=== PATIENT | female | born 1935 | race Caucasian/White ===

== ENCOUNTER 2017-10-01 10:35 | Emergency (ER) | payer MEDICARE, OTHER ==
[2017-10-01] MEDS ORDERED: Ketorolac 30 MG/ML SDV IM ONE (11:32)
--- NOTE | 2017-10-01 11:38 | EDM.PDOC ---
ED HPI GENERAL MEDICAL PROBLEM - General Chief Complaint: Abdominal Pain Stated Complaint: LT SIDE PAIN AND ARM Time Seen by Provider: 10/01/17 11:05 Source of Information: Reports: Patient History Limitations: Reports: No Limitations - History of Present Illness INITIAL COMMENTS - FREE TEXT/NARRATIVE: c/o LUQ pain x 3d no change with food, BM, walking, bending, DB worried it may be her GB had nl BM this AM without change did not eat bfast, no n/v no prior CV hx never smoked, no alc, no street drugs here with and dtr pressure has caused inc'd pain in past, has some LUQ pain now no cough, no sob also L shoulder pain in joint x 1d, inc'd with movement, no radiation, no related to LUQ pain LEFT HSOULDER Pain Score (Numeric/FACES): 6 - Related Data Allergies Allergy/AdvReac Type Severity Reaction Status Date / Time Penicillins Allergy Unknown Itching Verified 10/01/17 10:54 Home Meds: Home Meds Alpha Lipoic Acid 100 mg PO DAILY 12/29/16 [History] Cholecalciferol (Vitamin D3) [Vitamin D3] 5,000 unit PO BID 12/29/16 [History] Cinnamon Bark [Cinnamon] 500 mg PO BID 12/29/16 [History] Glimepiride [Amaryl] 2 mg PO BIDMEALS 12/29/16 [History] Lisinopril 5 mg PO DAILY 12/29/16 [History] Ubidecarenone [Coq10] 100 mg PO DAILY 12/29/16 [History] Vitamin B Comp W-C/FA/Zinc [Cinda B Strong with C & Zinc Tb] 1 each PO DAILY 09/04 [History] metFORMIN [Glucophage] 1,000 mg PO ASDIRECTED 12/29/16 [History] Beta-Carotene(A) W-C & E/Min [Vision Vitamins] 1 each PO DAILY 10/01/17 [History ] Biotin 1 mg PO DAILY 10/01/17 [History] Cetirizine [ZyrTEC] 5 mg PO BEDTIME 10/01/17 [History] Garlic 1 each PO BID 10/01/17 [History] Past Medical History HEENT History: Reports: Hard of Hearing, Other (See Below) Other HEENT History: Wears glasses and hearing aides. 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 Neurological History: Reports: TIA Endocrine/Metabolic History: Reports: Diabetes, Type II Oncologic (Cancer) History: Reports: Breast Dermatologic History: Reports: Psoriasis - Infectious Disease History Infectious Disease History: Reports: Chicken Pox, Shingles - Past Surgical History HEENT Surgical History: Reports: Cataract Surgery Cardiovascular Surgical History: Reports: None Respiratory Surgical History: Reports: None GI Surgical History: Reports: Appendectomy Female Surgical History: Reports: Hysterectomy, Mastectomy Neurological Surgical History: Reports: Spinal Fusion Musculoskeletal Surgical History: Reports: Other (See Below) Other Musculoskeletal Surgeries/Procedures:: left ankle orif Social & Family History - Tobacco Use Smoking Status *Q: Never Smoker - Caffeine Use Caffeine Use: Reports: Coffee - Alcohol Use Days Per Week of Alcohol Use: 1 Number of Drinks Per Day: 1 Total Drinks Per Week: 1 - Recreational Drug Use Recreational Drug Use: No ED ROS GENERAL - Review of Systems Review Of Systems: See Below Constitutional: Reports: No Symptoms HEENT: Reports: No Symptoms Respiratory: Reports: No Symptoms Cardiovascular: Reports: No Symptoms Endocrine: Reports: No Symptoms GI/Abdominal: Reports: Abdominal Pain. Denies: Anorexia, Constipation, Diarrhea , Nausea, Vomiting : Reports: No Symptoms Musculoskeletal: Reports: Joint Pain Skin: Reports: No Symptoms Neurological: Reports: No Symptoms Psychiatric: Reports: No Symptoms Hematologic/Lymphatic: Reports: No Symptoms Immunologic: Reports: No Symptoms ED EXAM, GI/ABD - Physical Exam Exam: See Below Exam Limited By: No Limitations General Appearance: Alert, WD/WN, No Apparent Distress, Other (alert, pleasant, moves easily) Nose: Normal Inspection, Normal Mucosa, No Blood Throat/Mouth: Normal Inspection, Normal Voice, No Airway Compromise Head: Atraumatic, Normocephalic Neck: Normal Inspection, Supple, Non-Tender Respiratory/Chest: No Respiratory Distress, Lungs Clear, Normal Breath Sounds, No Accessory Muscle Use, Chest Non-Tender Cardiovascular: Regular Rate, Rhythm, No Edema, No Gallop, No JVD, No Rub, Other (2/6 KERON at LSB, quiet precordium) GI/Abdominal Exam: Normal Bowel Sounds, Soft, No Organomegaly, No Distention, No Mass, Other (slight tender perhaps under L ribs at AAL, ribs NT, soft, ND, no flank tender, no CVAT b/l) Back Exam: Normal Inspection, Full Range of Motion, NT Extremities: Normal Inspection, Normal Range of Motion, Non-Tender, No Pedal Edema, Other (prominent upper thoracic kyphosis) Neurological: Alert, Oriented, CN II-XII Intact, Normal Cognition, Normal Gait, No Motor/Sensory Deficits Psychiatric: Normal Affect, Normal Mood Skin Exam: Warm, Dry, Intact, Normal Color, No Rash Lymphatic: No Adenopathy Course - Vital Signs Last Recorded V/S: Last Vital Signs Temp 36.8 C 10/01/17 13:55 Pulse 94 10/01/17 13:55 Resp 20 10/01/17 13:55 BP 110/64 10/01/17 13:55 Pulse Ox 97 10/01/17 13:55 - Orders/Labs/Meds Orders: Active Orders 24 hr Category Date Time Status CULTURE URINE [RM] Stat Lab 10/01/17 13:36 Uncollected EKG 12 Lead [EK] Routine Ther 10/01/17 11:31 Ordered Labs: Laboratory Tests 10/01/17 10/01/17 10/01/17 Range/Units 12:05 12:10 12:10 WBC 7.7 (4.5-12.0) X10-3/uL RBC 5.00 (3.23-5.20) x10(6)uL Hgb 15.1 (11.5-15.5) g/dL Hct 46.0 (30.0-51.3) % MCV 92.0 (80-96) fL MCH 30.3 (27.7-33.6) pg MCHC 33.0 (32.2-35.4) g/dL RDW 12.2 (11.5-15.5) % Plt Count 262 (125-369) X10(3)uL MPV 8.5 (7.4-10.4) fL Neut % (Auto) 65.5 (46-82) % Lymph % (Auto) 27.0 (13-37) % [place] % (Auto) 5.6 (4-12) % Eos % (Auto) 1 (1.0-5.0) % Baso % (Auto) 1 (0-2) % Neut # (Auto) 5.0 (1.6-8.3) # Lymph # (Auto) 2.1 (0.6-5.0) # [place] # (Auto) 0.4 (0.0-1.3) # Eos # (Auto) 0.1 (0.0-0.8) # Baso # (Auto) 0.1 (0.0-0.2) # D-Dimer, Quantitative (100-400) ng/mL Sodium 138 (135-145) mmol/L Potassium 4.6 (3.5-5.3) mmol/L Chloride 105 (100-110) mmol/L Carbon Dioxide 24 (23-29) mmol/L BUN 15 (8-23) mg/dL Creatinine 0.7 (0.6-1.3) mg/dL Est Cr Clr Drug Dosing 51.26 mL/min Estimated GFR (MDRD) > 60 (>60) BUN/Creatinine Ratio 21.4 H (9-20) Glucose 205 H (80-116) mg/dL Calcium 9.1 (8.6-10.2) mg/dL Total Bilirubin 0.6 (0.1-1.3) mg/dL AST 21 D (5-27) IU/L ALT 16 D (14-26) IU/L Alkaline Phosphatase 62 (56-112) IU/L Troponin I (0.02-0.06) NG/ML C-Reactive Protein < 0.5 (0.0-1.0) mg/dL Total Protein 7.6 (6.0-8.0) g/dL Albumin 4.1 (3.2-4.6) g/dL Globulin 3.5 g/dL Albumin/Globulin Ratio 1.2 Amylase 58 (28-100) U/L Urine Color Yellow (YELLOW) Urine Appearance Slightly cloudy (CLEAR) Urine pH 5.0 (5.0-6.5) Ur Specific [place] 1.025 (1.010-1.025) Urine Protein Negative (NEGATIVE) mg/dL Urine Glucose (UA) Normal (NEGATIVE) mg/dL Urine Ketones Negative (NEGATIVE) mg/dL Urine Occult Blood Negative (NEGATIVE) Urine Nitrite Positive H (NEGATIVE) Urine Bilirubin Negative (NEGATIVE) Urine Urobilinogen Normal (NEGATIVE) mg/dL Ur Leukocyte Esterase Negative (NEGATIVE) Urine WBC 0-5 (0) Ur Squamous Epith Cells Few H (NS,R,O) Urine Bacteria Many H (NS) 10/01/17 10/01/17 Range/Units 12:10 12:10 WBC (4.5-12.0) X10-3/uL RBC (3.23-5.20) x10(6)uL Hgb (11.5-15.5) g/dL Hct (30.0-51.3) % MCV (80-96) fL MCH (27.7-33.6) pg MCHC (32.2-35.4) g/dL RDW (11.5-15.5) % Plt Count (125-369) X10(3)uL MPV (7.4-10.4) fL Neut % (Auto) (46-82) % Lymph % (Auto) (13-37) % [place] % (Auto) (4-12) % Eos % (Auto) (1.0-5.0) % Baso % (Auto) (0-2) % Neut # (Auto) (1.6-8.3) # Lymph # (Auto) (0.6-5.0) # [place] # (Auto) (0.0-1.3) # Eos # (Auto) (0.0-0.8) # Baso # (Auto) (0.0-0.2) # D-Dimer, Quantitative 108 (100-400) ng/mL Sodium (135-145) mmol/L Potassium (3.5-5.3) mmol/L Chloride (100-110) mmol/L Carbon Dioxide (23-29) mmol/L BUN (8-23) mg/dL Creatinine (0.6-1.3) mg/dL Est Cr Clr Drug Dosing mL/min Estimated GFR (MDRD) (>60) BUN/Creatinine Ratio (9-20) Glucose (80-116) mg/dL Calcium (8.6-10.2) mg/dL Total Bilirubin (0.1-1.3) mg/dL AST (5-27) IU/L ALT (14-26) IU/L Alkaline Phosphatase (56-112) IU/L Troponin I < 0.01 L (0.02-0.06) NG/ML C-Reactive Protein (0.0-1.0) mg/dL Total Protein (6.0-8.0) g/dL Albumin (3.2-4.6) g/dL Globulin g/dL Albumin/Globulin Ratio Amylase (28-100) U/L Urine Color (YELLOW) Urine Appearance (CLEAR) Urine pH (5.0-6.5) Ur Specific [place] (1.010-1.025) Urine Protein (NEGATIVE) mg/dL Urine Glucose (UA) (NEGATIVE) mg/dL Urine Ketones (NEGATIVE) mg/dL Urine Occult Blood (NEGATIVE) Urine Nitrite (NEGATIVE) Urine Bilirubin (NEGATIVE) Urine Urobilinogen (NEGATIVE) mg/dL Ur Leukocyte Esterase (NEGATIVE) Urine WBC (0) Ur Squamous Epith Cells (NS,R,O) Urine Bacteria (NS) Meds: Medications Discontinued Medications Generic Name Dose Route Start Last Admin Trade Name Freq PRN Reason Stop Dose Admin Ketorolac Tromethamine 30 mg 10/01/17 11:32 10/01/17 12:21 Toradol IM 10/01/17 11:33 Not Given ONETIME ONE - Re-Assessments/Exams Free Text/Narrative Re-Assessment/Exam: 10/01/17 13:58 u/a with moderate bacteria, no WBC, pt declined antbx, says she "has a way of treating it" XR L shoulder with DJD at AC joint, GH joint neg KUB with stool throughout colon w/u otherwise neg, pt comfortable, declined Toradol PCP Dr Sheridan Departure - Departure Time of Disposition: 13:59 Disposition: Home, Self-Care 01 Condition: Good Clinical Impression: Abdominal pain, UTI (urinary tract infection), Constipation - Discharge Information Referrals: Sanchez Dejesus MD [Primary Care Provider] - Forms: ED Department Discharge Additional Instructions: Drink a 10 ounce bottle magnesium citrate when you get home to clean out the colon. For urinary tract infection, use your home remedy. For pain, take acetaminophen 325 mg 2 tabs 4 times a day for 2 days, longer if needed. See Dr Sheridan in 2-3 days. Return to ED if you feel worse. Call your Physician or Return to Emergency Department if: * Your condition worsens in any way. * You develop fever greater than 100.4. * You have vomitting that does not stop with medications. * You have pain that is not controlled with medications. - My Orders Last 24 Hours: My Active Orders 10/01/17 11:31 EKG 12 Lead [EK] Routine 10/01/17 13:36 CULTURE URINE [RM] Stat - Assessment/Plan Last 24 Hours: My Active Orders 10/01/17 11:31 EKG 12 Lead [EK] Routine 10/01/17 13:36 CULTURE URINE [RM] Stat
--- NOTE | 2017-10-01 13:27 | CR ---
INDICATION: Left shoulder pain. LEFT SHOULDER: Three views of the left shoulder revealed overall demineralization, suggesting the possibility of osteoporosis - correlate clinically. Minimal degenerative changes are noted at the AC joint. The glenohumeral joint appeared fairly normal for age. No evidence of an acute fracture or dislocation was identified. MTDD
--- NOTE | 2017-10-01 13:35 | CR ---
INDICATION: Left upper quadrant pain compatible with constipation. ABDOMEN: Four images of the abdomen in supine and upright projections 2016. No comparison x-rays were identified. However, there was a CT of the abdomen from 09/05/2013. Degenerative changes and disk disease are noted with scoliosis in the lumbosacral spine. Calcifications are noted in the abdominal aorta and iliac, as well as femoral arteries. A calcific density in the pelvis, lower middle to mid area, may represent a vesicular calculus. There are some mild degenerative changes at the sacroiliac joints bilaterally. The hip joints appear to be fairly intact. The pattern of gas and feces is nonspecific, without evidence of free air or obstruction. No organomegaly or mass lesions were identified. IMPRESSION: 1. Nonacute abdomen with only one air-fluid level of questionable significance in the right lower quadrant. 2. ASD. 3. DJD, disk disease, scoliosis. 4. Possible 1-cm calculus in the area of the urinary bladder - correlate clinically. This appearance could also be on the basis of a calcified uterine fibroid. MTDD
[2017-10-01 13:56] VITALS: BP 110/64
== END 2017-10-01 14:13 | disposition home or self-care (01) ==
LOC: FB.ED 10:35
DX: N39.0 Urinary tract infection, site not specified (principal); K59.00 Constipation, unspecified; I10 Essential (primary) hypertension; E11.9 Type 2 diabetes mellitus without complications; Z79.84 Long term (current) use of oral hypoglycemic drugs; Z79.899 Other long term (current) drug therapy; Z88.0 Allergy status to penicillin
CPT/HCPCS: 36415; 73030-LT; 74020; 80053; 81001; 82150; 84484; 85025; 85379; 86140; 93005; 96372; 99283; 99284

== ENCOUNTER 2019-12-22 07:15 | Day surgery (SDC) | payer MEDICARE, BC ==
[~2019-12-22 07:15] MED LIST: Lactated Ringers 1,000 ML IV SCH; Sodium Chloride 0.9% 10 ML Syringe FLUSH PRN
[2019-12-22] MEDS ORDERED: Lidocaine 2% 5 ML SDV INJECT ONE (07:16)
[2019-12-22] MEDS ORDERED: Propofol 200 MG/20 ML SDV IV ONE (07:16)
--- NOTE | 2019-12-22 09:09 | PCM.OPNOTE ---
- General Post-Op/Procedure Note Date of Surgery/Procedure: 12/22/19 Operative Procedure(s): egd with bx Findings: gastroduodenitis hiatal hernia esophagitis Pre Op Diagnosis: dysphagia Post-Op Diagnosis: gastroduodenitis. hiatal hernia. esophagitis Anesthesia Technique: MAC Primary Surgeon: Federico Briseno Anesthesia Provider: Cierra Morton Pathology: duodenum stomach esophagus Complications: None Condition: Good Free Text/Narrative:: see dictation
[2019-12-22 09:53] VITALS: BP 140/81; PULSE 97
--- NOTE | 2019-12-22 15:19 | OR ---
DATE OF OPERATION: 12/22/2019 SURGEON: Federico Briseno MD PROCEDURE PERFORMED: Esophagogastroduodenoscopy with cold forceps biopsy. PREOPERATIVE DIAGNOSIS: Dysphagia. POSTOPERATIVE DIAGNOSES: Gastroduodenitis, esophagitis, and hiatal hernia. INDICATIONS FOR PROCEDURE: This is an 84-year-old white female with a longstanding history of swallowing issues. She was offered and accepted an esophagogastroduodenoscopy. DESCRIPTION OF OPERATION: After an excellent IV sedation was administered, the bite block was inserted. Flexible endoscope was passed without difficulties down the patient's esophagus into the stomach. Stomach was insufflated. Scope was passed through the pylorus to the second portion of the duodenum and slowly withdrawn. Following findings were noted. Duodenum, mild irritation, possible metaplasia, and the proximal duodenum biopsies were taken. Stomach, hiatal hernia. GE junction measured at 35 cm. There was some mild gastritis. Biopsies were taken. GE junction is noted, measured at 35 cm, and there was some evidence of esophagitis, possible intestinal metaplasia. Biopsies were taken of this area as well. The remainder of the esophageal exam was unremarkable. Stomach was deflated. Scope was removed. The patient tolerated the procedure well, was taken to recovery in good condition. /[id number] /CLIFFL
== END 2019-12-22 10:11 | disposition home or self-care (01) ==
LOC: FB.SDS 07:15
PROVIDERS: ATTEND Surgery
DX: K29.80 Duodenitis without bleeding (principal); K29.50 Unspecified chronic gastritis without bleeding; K20.9 Esophagitis, unspecified; K44.9 Diaphragmatic hernia without obstruction or gangrene; K31.89 Other diseases of stomach and duodenum; I10 Essential (primary) hypertension; E78.49 Other hyperlipidemia; E11.42 Type 2 diabetes mellitus with diabetic polyneuropathy; Z79.84 Long term (current) use of oral hypoglycemic drugs; Z79.899 Other long term (current) drug therapy
CPT/HCPCS: 43239; 82962; J2001; J2704; J7120; 88305; 88313; 88342

== ENCOUNTER 2021-02-25 15:06 | Inpatient (IN) | payer MEDICARE, BC ==
[2021-02-25] MEDS ORDERED: 50% Dextrose in Water 50 ML Syringe IVPUSH PRN ×3 (15:33→18:28)
[2021-02-25] MEDS ORDERED: Glucagon,Human Recombinant 1 MG Vial IM PRN ×3 (15:33→18:28)
[2021-02-25] MEDS ORDERED: Insulin Regular, Human 100 Units/ML 3 ML Vial IV ONE (15:33)
[2021-02-25] MEDS ORDERED: Sodium Chloride 0.9% 1,000 ML IV SCH ×2 (15:45→18:30)
--- NOTE | 2021-02-25 18:02 | PCM.HP.2 ---
H&P History of Present Illness - General Date of Service: 02/25/21 Admit Problem/Dx: Admission Diagnosis/Problem Admission Diagnosis/Problem Hyperglycemia Source of Information: Patient, Provider History Limitations: Reports: No Limitations - History of Present Illness Initial Comments - Free Text/Narative: 85-year-old lady was seen in the office today by her primary care physician due to ongoing difficulties with urinary tract infection, hyperglycemia, and lower extremity ulcer. Patient has been treated by starting insulin at home, surgical treatment for the ulcer, and antibiotics for urinary tract infection. There appears to be some confusion as to which antibiotic the patient should be taking. Medical record shows that the patient was ordered doxycycline on 02/21 but the patient insists that she has been taking Bactrim at home. Review of the medical record shows that urine culture shows sensitivity to doxycycline but not to Bactrim. She was sent to the hospital for direct admission due to uncontrolled hyperglycemia, polyuria, polydipsia, UTI, weakness. - Related Data Allergies/Adverse Reactions: Allergies Allergy/AdvReac Type Severity Reaction Status Date / Time Penicillins Allergy Unknown Itching Verified 12/22/19 07:45 aspirin Allergy Other Verified 12/22/19 07:45 Home Medications: Home Meds Cinnamon Bark [Cinnamon] 500 mg PO BID 12/29/16 [History] Lisinopril 5 mg PO DAILY 12/29/16 [History] Ubidecarenone [Coq10] 50 mg PO DAILY 12/29/16 [History] Vitamin B Comp W-C/FA/Zinc [Cinda B Strong with C & Zinc Tb] 1 each PO DAILY 12/29/16 [History] metFORMIN [Glucophage] 1,000 mg PO BID 12/29/16 [History] Garlic 50 mg PO BID 10/01/17 [History] Benfothiamine 1 tab PO BID 02/25/21 [History] Berberine Gluco Defense 500 mg PO BID 02/25/21 [History] Cetirizine [ZyrTEC] 5 mg PO BEDTIME 02/25/21 [History] Cholecalciferol (Vitamin D3) [Vitamin D] 5,000 unit PO BID 02/25/21 [History] Curcumin 500 mg PO DAILY 02/25/21 [History] Dulaglutide [Trulicity] 3 mg SUBCUT WE 02/25/21 [History] Evening [place] Oil 1 cap PO DAILY 02/25/21 [History] Glimepiride 2 mg PO BIDMEALS 02/25/21 [History] Gymnema Kang 400 mg PO DAILY PRN 02/25/21 [History] Insulin Aspart [NovoLOG] 6 units SUBCUT ASDIRECTED 02/25/21 [History] Insulin NPH/Insulin Reg,Human [Novolin 70-30] 20 units SUBCUT BIDAC 02/25/21 [History] Sulfamethoxazole/Trimethoprim [Bactrim Ds Tablet] 1 tab PO BID 02/25/21 [History] Vanadyl Sulfate 10 mg PO DAILY PRN 02/25/21 [History] Past Medical History HEENT History: Reports: Hard of Hearing, Other (See Below) Other HEENT History: Wears glasses and hearing aides. PRESBYOPIA. ASTIGMATISM. MYOPIA Cardiovascular History: Reports: High Cholesterol, Hypertension Respiratory History: Reports: None Gastrointestinal History: Reports: GERD Other Gastrointestinal History: GASTRITIS. GASTRODUODENITIS. PERSONAL HX OF URINARY DISORDER. 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 Neurological History: Reports: TIA Endocrine/Metabolic History: Reports: Diabetes, Type II Oncologic (Cancer) History: Reports: Breast Other Oncologic History: FAMILY HX OF MALIGNANT NEOPLASM OF BREAST Dermatologic History: Reports: Psoriasis - Infectious Disease History Infectious Disease History: Reports: Chicken Pox, Shingles - Past Surgical History HEENT Surgical History: Reports: Cataract Surgery Cardiovascular Surgical History: Reports: None Respiratory Surgical History: Reports: None GI Surgical History: Reports: Appendectomy Female Surgical History: Reports: Hysterectomy, Mastectomy Neurological Surgical History: Reports: Spinal Fusion Other Neurological Surgeries/Procedures: Low back surgery. Musculoskeletal Surgical History: Reports: Other (See Below) Other Musculoskeletal Surgeries/Procedures:: left ankle orif Social & Family History - Caffeine Use Caffeine Use: Reports: Coffee H&P Review of Systems - Review of Systems: Review Of Systems: See Below Free Text/Narrative: Patient states that she does not have any pain at this time but she continues to feel very weak. General: Reports: Malaise, Weakness HEENT: Reports: No Symptoms Pulmonary: Reports: No Symptoms Cardiovascular: Reports: No Symptoms Gastrointestinal: Reports: Abdominal Pain Genitourinary: Reports: No Symptoms Musculoskeletal: Reports: No Symptoms Skin: Reports: No Symptoms Psychiatric: Reports: No Symptoms Neurological: Reports: No Symptoms Hematologic/Lymphatic: Reports: No Symptoms Immunologic: Reports: No Symptoms Exam - Exam Exam: See Below - Vital Signs Vital Signs: Last Vital Signs Temp 36.3 C 02/25/21 16:20 Pulse 118 H 02/25/21 16:20 Resp 16 02/25/21 16:20 BP 109/74 02/25/21 16:20 Pulse Ox 96 02/25/21 16:20 Weight: 61.054 kg - Exam Quality Assessment: Supplemental Oxygen, DVT Prophylaxis General: Alert, Oriented, Cooperative HEENT: EOMI Lungs: Clear to Auscultation Cardiovascular: Regular Rate, Regular Rhythm GI/Abdominal Exam: Normal Bowel Sounds, Tender Back Exam: No: CVA Tenderness (R), CVA Tenderness (L) Extremities: Normal Inspection, Other Peripheral Pulses: 1+: Dorsalis Pedis (L), Dorsalis Pedis (R), 2+: Radial (L), Radial (R) Skin: Warm, Dry, Intact, Wound Neuro Extensive - Mental Status: Alert, Oriented x3, Normal Mood/Affect Psychiatric: Alert, Normal Affect, Normal Mood - Patient Data Lab Results Last 24 hrs: Laboratory Results - last 24 hr 02/25/21 Range/Units 16:40 Glucose 511 H* (80-116) mg/dL Sepsis Event Note - Evaluation Sepsis Screening Result: No Definite Risk - Focused Exam Vital Signs: Vital Signs Temp Pulse Resp BP Pulse Ox 02/25/21 16:20 36.3 C 118 H 16 109/74 96 - Problem List (1) Acute kidney injury SNOMED Code(s): 84863558, 66636028 ICD Code: N17.9 - ACUTE KIDNEY FAILURE, UNSPECIFIED Status: Acute Current Visit: Yes (2) Polyuria SNOMED Code(s): 83022204 ICD Code: R35.8 - OTHER POLYURIA Status: Acute Current Visit: Yes (3) Polydipsia SNOMED Code(s): 52361476 ICD Code: R63.1 - POLYDIPSIA Status: Acute Current Visit: Yes (4) Fatigue SNOMED Code(s): 19837320 ICD Code: R53.83 - OTHER FATIGUE Status: Acute Current Visit: Yes (5) Hyperglycemia due to type 2 diabetes mellitus SNOMED Code(s): 349174780607741, 654803850808157 ICD Code: E11.65 - TYPE 2 DIABETES MELLITUS WITH HYPERGLYCEMIA Status: Acute Current Visit: Yes (6) High anion gap metabolic acidosis SNOMED Code(s): 21889716 ICD Code: E87.2 - ACIDOSIS Status: Acute Current Visit: Yes (7) Palliative care status SNOMED Code(s): 868844790 ICD Code: Z51.5 - ENCOUNTER FOR PALLIATIVE CARE Status: Acute Current Visit: Yes (8) UTI (urinary tract infection) SNOMED Code(s): 25105464 ICD Code: N39.0 - URINARY TRACT INFECTION, SITE NOT SPECIFIED Status: Acute Current Visit: No (9) Ulcer of left ankle SNOMED Code(s): 204387108, 293590312 ICD Code: L97.329 - NON-PRESSURE CHRONIC ULCER OF LEFT ANKLE WITH UNSP SEVERITY Status: Acute Current Visit: Yes Problem List Initiated/Reviewed/Updated: Yes Orders Last 24hrs: Active Orders 24 hr Category Date Time Status Patient Status [ADT] Routine ADT 02/25/21 17:49 Ordered Accu Check [Blood Glucose Check, Bedside] [RC] Care 02/25/21 15:33 Active QIDACANDBED Oxygen Therapy [RC] PRN Care 02/25/21 17:49 Ordered Up With Assistance [RC] ASDIRECTED Care 02/25/21 17:49 Ordered VTE/DVT Education [RC] Per Unit Routine Care 02/25/21 17:49 Ordered Vital Signs [RC] Q4H Care 02/25/21 17:49 Ordered Consistent Carbohydrate Diet [DIET] Diet 02/25/21 Dinner Ordered Cetirizine [ZyrTEC] Med 02/25/21 21:00 Ordered 5 mg PO BEDTIME Cholecalciferol (Vitamin D3) [Vitamin D] Med 02/25/21 21:00 Ordered 5,000 unit PO BID Doxycycline [Vibramycin] 100 mg Med 02/25/21 18:00 Ordered Sodium Chloride 0.9% [Normal Saline] 100 ml IV Q12HR Enoxaparin [Lovenox] Med 02/25/21 18:00 Ordered 30 mg SUBCUT Q24H Sodium Chloride 0.9% [Normal Saline] 1,000 ml Med 02/25/21 15:45 Active IV ASDIRECTED lisinopriL [Prinivil] Med 02/26/21 09:00 Ordered 5 mg PO DAILY Resuscitation Status Routine Resus Stat 02/25/21 17:49 Ordered Medication Orders Cetirizine HCl (Cetirizine 10 Mg Tab) 5 mg PO BEDTIME GIANNI Cholecalciferol (Cholecalciferol (Vitamin D3) 25 Mcg Tab) 125 mcg PO BID [facility] Enoxaparin Sodium (Enoxaparin 30 Mg/0.3 Ml Syringe) 30 mg SUBCUT Q24H [facility] Sodium Chloride (Normal Saline) 1,000 mls @ 150 mls/hr IV ASDIRECTED [facility] Last Admin: 02/25/21 16:33 Dose: 150 mls/hr Documented by: BOBBY Doxycycline Hyclate 100 mg/ (Sodium Chloride) 100 mls @ 100 mls/hr IV Q12HR [facility] Lisinopril (Lisinopril 5 Mg Tab) 5 mg PO DAILY [facility] Assessment/Plan Comment:: UTI/acute kidney injury -start IV doxycycline, consider switching to oral when patient begins to start to show improvement Elevated anion gap metabolic acidosis secondary to hyperglycemia secondary to type 2 diabetes secondary to acute kidney injury sliding scale insulin, glucose checks AC and at bedtime, will add basal insulin once sensitivity is established and renal function improves Fatigue and other symptoms will likely improve as kidney function and glucose control improves DVT prophylaxis -patient's GFR is at the lower limits for enoxaparin, 30 mg now consider increasing dose with improving renal function Diet -system carbohydrate
[2021-02-25] MEDS ORDERED: Insulin Lispro Protamine/Lispro 75-25 100 Units/ML 3 ML KwikPen SUBCUT SCH (18:07)
[2021-02-25] MEDS: Doxycycline 100 MG in Sodium Chloride 0.9% 100 ML IV SCH (18:50)
[2021-02-25] MEDS: Cholecalciferol (Vitamin D3) 25 MCG Tab PO SCH (20:36)
[2021-02-25] MEDS: Cetirizine 10 MG Tab PO SCH (20:37)
[2021-02-25] MEDS: Insulin Lispro 100 Unit/ML 3 ML KwikPen SUBCUT SCH (20:37)
[2021-02-25] MEDS ORDERED: Enoxaparin 30 MG/0.3 ML Syringe SUBCUT SCH (21:00)
[2021-02-26] MEDS: Acetaminophen 325 MG Tab PO PRN ×3 (01:04→20:45)
[2021-02-26] MEDS: Doxycycline 100 MG in Sodium Chloride 0.9% 100 ML IV SCH ×2 (05:21→17:14)
[2021-02-26] MEDS ORDERED: Insulin Lispro 100 Unit/ML 3 ML KwikPen SUBCUT ONE (07:33)
[2021-02-26] MEDS: Insulin Lispro 100 Unit/ML 3 ML KwikPen SUBCUT SCH ×4 (07:37→20:45)
[2021-02-26] MEDS: Cholecalciferol (Vitamin D3) 25 MCG Tab PO SCH ×2 (08:18→20:44)
[2021-02-26] MEDS: Lisinopril 5 MG Tab PO SCH (08:18)
--- NOTE | 2021-02-26 09:48 | PCM.PN ---
- General Info Date of Service: 02/26/21 Admission Dx/Problem (Free Text): Admission Diagnosis/Problem Admission Diagnosis/Problem Hyperglycemia Subjective Update: Patient states that she feels much better today. She has no new concerns or complaints. Functional Status: Reports: Pain Controlled, Tolerating Diet, Ambulating, Urinating - Review of Systems General: Reports: No Symptoms, Weakness HEENT: Reports: No Symptoms Pulmonary: Reports: No Symptoms Cardiovascular: Reports: No Symptoms Gastrointestinal: Reports: No Symptoms Genitourinary: Reports: No Symptoms Musculoskeletal: Reports: No Symptoms Skin: Reports: No Symptoms Neurological: Reports: No Symptoms Psychiatric: Reports: No Symptoms - Patient Data Vitals - Most Recent: Last Vital Signs Temp 36.3 C 02/26/21 04:00 Pulse 100 02/26/21 04:00 Resp 18 02/26/21 04:00 BP 114/59 L 02/26/21 08:18 Pulse Ox 95 02/26/21 04:00 Weight - Most Recent: 64.546 kg I&O - Last 24 Hours: Intake & Output 02/25/21 02/26/21 02/26/21 22:59 06:59 14:59 Intake Total 640 1160 Balance 640 1160 Lab Results Last 24 Hours: Laboratory Results - last 24 hr 02/25/21 02/25/21 02/25/21 Range/Units 16:18 16:40 20:03 WBC (3.0-10.3) x10-3/uL RBC (3.60-5.20) x10(6)uL Hgb (11.4-15.5) g/dL Hct (34.2-48.2) % MCV (76.7-100.5) fL MCH (23.9-33.9) pg MCHC (31.9-34.8) g/dL RDW (12.3-16.5) % Plt Count (151-488) x10(3)uL MPV (7.1-12.4) fL Neut % (Auto) (30.8-76.2) % Lymph % (Auto) (18.4-52.1) % [place] % (Auto) (4.4-15.7) % Eos % (Auto) (0.6-8.1) % Baso % (Auto) (0.2-1.5) % Neut # (Auto) (1.5-6.3) x10-3/uL Lymph # (Auto) (1.0-4.4) x10-3/uL [place] # (Auto) (0.3-1.0) x10-3/uL Eos # (Auto) (0.0-0.8) x10-3/uL Baso # (Auto) (0.0-0.1) x10-3/uL Sodium (135-145) mmol/L Potassium (3.5-5.3) mmol/L Chloride (100-110) mmol/L Carbon Dioxide (21-32) mmol/L BUN (7-18) mg/dL Creatinine (0.55-1.02) mg/dL Est Cr Clr Drug Dosing mL/min Estimated GFR (MDRD) (>60) BUN/Creatinine Ratio (9-20) Glucose 511 H* (80-116) mg/dL POC Glucose > 500 H* 391 H (74-100) mg/dL Calcium (8.6-10.2) mg/dL 02/26/21 02/26/21 Range/Units 08:47 08:47 WBC 8.1 (3.0-10.3) x10-3/uL RBC 4.23 (3.60-5.20) x10(6)uL Hgb 12.7 (11.4-15.5) g/dL Hct 39.1 (34.2-48.2) % MCV 92.5 (76.7-100.5) fL MCH 30.0 (23.9-33.9) pg MCHC 32.4 (31.9-34.8) g/dL RDW 13.7 (12.3-16.5) % Plt Count 334 (151-488) x10(3)uL MPV 8.6 (7.1-12.4) fL Neut % (Auto) 58.4 (30.8-76.2) % Lymph % (Auto) 29.3 (18.4-52.1) % [place] % (Auto) 10.3 (4.4-15.7) % Eos % (Auto) 1.2 (0.6-8.1) % Baso % (Auto) 0.8 (0.2-1.5) % Neut # (Auto) 4.7 (1.5-6.3) x10-3/uL Lymph # (Auto) 2.4 (1.0-4.4) x10-3/uL [place] # (Auto) 0.8 (0.3-1.0) x10-3/uL Eos # (Auto) 0.1 (0.0-0.8) x10-3/uL Baso # (Auto) 0.1 (0.0-0.1) x10-3/uL Sodium 134 L (135-145) mmol/L Potassium 5.0 (3.5-5.3) mmol/L Chloride 99 L (100-110) mmol/L Carbon Dioxide 19 L (21-32) mmol/L BUN 34 H (7-18) mg/dL Creatinine 1.1 H (0.55-1.02) mg/dL Est Cr Clr Drug Dosing 30.37 mL/min Estimated GFR (MDRD) 47 L (>60) BUN/Creatinine Ratio 30.9 H (9-20) Glucose 306 H D (80-116) mg/dL POC Glucose (74-100) mg/dL Calcium 9.2 (8.6-10.2) mg/dL Med Orders - Current: Current Medications Acetaminophen (Acetaminophen 325 Mg Tab) 650 mg PO Q6H PRN PRN Reason: Pain Last Admin: 02/26/21 01:04 Dose: 650 mg Documented by: Cetirizine HCl (Cetirizine 10 Mg Tab) 5 mg PO BEDTIME REPLACED BY [facility] Last Admin: 02/25/21 20:37 Dose: 5 mg Documented by: Cholecalciferol (Cholecalciferol (Vitamin D3) 25 Mcg Tab) 125 mcg PO BID REPLACED BY [facility] Last Admin: 02/26/21 08:18 Dose: 125 mcg Documented by: Dextrose/Water (50% Dextrose In Water 50 Ml Syringe) 50 ml IVPUSH ASDIRECTED PRN PRN Reason: Hypoglycemia Enoxaparin Sodium (Enoxaparin 30 Mg/0.3 Ml Syringe) 30 mg SUBCUT BEDTIME REPLACED BY [facility] Last Admin: 02/25/21 20:36 Dose: 30 mg Documented by: Glucagon (Glucagon,Human Recombinant 1 Mg Vial) 1 mg IM ASDIRECTED PRN PRN Reason: Hypoglycemia Doxycycline Hyclate 100 mg/ (Sodium Chloride) 100 mls @ 100 mls/hr IV Q12H REPLACED BY [facility] Last Admin: 02/26/21 05:21 Dose: 100 mls/hr Documented by: Sodium Chloride (Normal Saline) 1,000 mls @ 75 mls/hr IV ASDIRECTED REPLACED BY [facility] Insulin Human Lispro (Insulin Lispro 100 Unit/Ml 3 Ml Kwikpen) 0 unit SUBCUT QIDACANDBED REPLACED BY [facility]; Protocol Last Admin: 02/26/21 07:37 Dose: 2 units Documented by: Lisinopril (Lisinopril 5 Mg Tab) 5 mg PO DAILY REPLACED BY [facility] Last Admin: 02/26/21 08:18 Dose: 5 mg Documented by: Discontinued Medications Dextrose/Water (50% Dextrose In Water 50 Ml Syringe) 50 ml IVPUSH ASDIRECTED PRN PRN Reason: Hypoglycemia Dextrose/Water (50% Dextrose In Water 50 Ml Syringe) 50 ml IVPUSH ASDIRECTED PRN PRN Reason: Hypoglycemia Glucagon (Glucagon,Human Recombinant 1 Mg Vial) 1 mg IM ASDIRECTED PRN PRN Reason: Hypoglycemia Glucagon (Glucagon,Human Recombinant 1 Mg Vial) 1 mg IM ASDIRECTED PRN PRN Reason: Hypoglycemia Sodium Chloride (Normal Saline) 1,000 mls @ 150 mls/hr IV ASDIRECTED REPLACED BY [facility] Last Infusion: 02/25/21 18:39 Dose: 125 mls/hr Documented by: Sodium Chloride (Normal Saline) 1,000 mls @ 125 mls/hr IV ASDIRECTED REPLACED BY [facility] Last Admin: 02/26/21 01:07 Dose: 125 mls/hr Documented by: Insulin Human Regular (Insulin Regular, Human 100 Units/Ml 3 Ml Vial) 10 unit IV ONETIME ONE Stop: 02/25/21 15:34 Last Admin: 02/25/21 17:20 Dose: 10 unit Documented by: Insulin Lispro Protam/Lispro Human (Insulin Lispro Protamine/Lispro 75-25 100 Units/Ml 3 Ml Kwikpen) 0 unit SUBCUT QIDACANDBED REPLACED BY [facility]; Protocol Last Admin: 02/25/21 18:39 Dose: Not Given Documented by: Comments:: Patient was able to stand and walk to the shower and take a shower with assistance. When I examined the patient she was standing next to her bed. She appears to be much stronger. - Exam Quality Assessment: Supplemental Oxygen, DVT Prophylaxis General: Alert, Oriented, Cooperative, No Acute Distress HEENT: EOMI Lungs: Crackles (Bilateral lower lobe crackles, reduced airflow left lower lobe) Cardiovascular: Regular Rate, Regular Rhythm GI/Abdominal Exam: Normal Bowel Sounds, Soft, Non-Tender Back Exam: Normal Inspection. No: CVA Tenderness (R), CVA Tenderness (L) Extremities: Normal Inspection Peripheral Pulses: 1+: Dorsalis Pedis (L), Dorsalis Pedis (R), 2+: Radial (L), Radial (R) Skin: Warm, Dry, Intact Wound/Incisions: No Drainage Neurological: No: Normal Gait Psy/Mental Status: Alert, Normal Affect, Normal Mood - Patient Data Lab Results Last 24 hrs: Laboratory Results - last 24 hr 02/25/21 02/25/21 02/25/21 Range/Units 16:18 16:40 20:03 WBC (3.0-10.3) x10-3/uL RBC (3.60-5.20) x10(6)uL Hgb (11.4-15.5) g/dL Hct (34.2-48.2) % MCV (76.7-100.5) fL MCH (23.9-33.9) pg MCHC (31.9-34.8) g/dL RDW (12.3-16.5) % Plt Count (151-488) x10(3)uL MPV (7.1-12.4) fL Neut % (Auto) (30.8-76.2) % Lymph % (Auto) (18.4-52.1) % [place] % (Auto) (4.4-15.7) % Eos % (Auto) (0.6-8.1) % Baso % (Auto) (0.2-1.5) % Neut # (Auto) (1.5-6.3) x10-3/uL Lymph # (Auto) (1.0-4.4) x10-3/uL [place] # (Auto) (0.3-1.0) x10-3/uL Eos # (Auto) (0.0-0.8) x10-3/uL Baso # (Auto) (0.0-0.1) x10-3/uL Sodium (135-145) mmol/L Potassium (3.5-5.3) mmol/L Chloride (100-110) mmol/L Carbon Dioxide (21-32) mmol/L BUN (7-18) mg/dL Creatinine (0.55-1.02) mg/dL Est Cr Clr Drug Dosing mL/min Estimated GFR (MDRD) (>60) BUN/Creatinine Ratio (9-20) Glucose 511 H* (80-116) mg/dL POC Glucose > 500 H* 391 H (74-100) mg/dL Calcium (8.6-10.2) mg/dL 02/26/21 02/26/21 Range/Units 08:47 08:47 WBC 8.1 (3.0-10.3) x10-3/uL RBC 4.23 (3.60-5.20) x10(6)uL Hgb 12.7 (11.4-15.5) g/dL Hct 39.1 (34.2-48.2) % MCV 92.5 (76.7-100.5) fL MCH 30.0 (23.9-33.9) pg MCHC 32.4 (31.9-34.8) g/dL RDW 13.7 (12.3-16.5) % Plt Count 334 (151-488) x10(3)uL MPV 8.6 (7.1-12.4) fL Neut % (Auto) 58.4 (30.8-76.2) % Lymph % (Auto) 29.3 (18.4-52.1) % [place] % (Auto) 10.3 (4.4-15.7) % Eos % (Auto) 1.2 (0.6-8.1) % Baso % (Auto) 0.8 (0.2-1.5) % Neut # (Auto) 4.7 (1.5-6.3) x10-3/uL Lymph # (Auto) 2.4 (1.0-4.4) x10-3/uL [place] # (Auto) 0.8 (0.3-1.0) x10-3/uL Eos # (Auto) 0.1 (0.0-0.8) x10-3/uL Baso # (Auto) 0.1 (0.0-0.1) x10-3/uL Sodium 134 L (135-145) mmol/L Potassium 5.0 (3.5-5.3) mmol/L Chloride 99 L (100-110) mmol/L Carbon Dioxide 19 L (21-32) mmol/L BUN 34 H (7-18) mg/dL Creatinine 1.1 H (0.55-1.02) mg/dL Est Cr Clr Drug Dosing 30.37 mL/min Estimated GFR (MDRD) 47 L (>60) BUN/Creatinine Ratio 30.9 H (9-20) Glucose 306 H D (80-116) mg/dL POC Glucose (74-100) mg/dL Calcium 9.2 (8.6-10.2) mg/dL Result Diagrams: 02/26/21 08:47 02/26/21 08:47 Sepsis Event Note - Evaluation Sepsis Screening Result: No Definite Risk - Focused Exam Vital Signs: Vital Signs Temp Pulse Resp BP BP Pulse Ox 02/26/21 08:18 114/59 L 02/26/21 04:00 36.3 C 100 18 130/76 95 02/25/21 23:45 36.3 C 101 H 18 114/67 97 02/25/21 21:49 36.4 C 112 H 18 119/67 99 - Problem List & Annotations (1) Acute kidney injury SNOMED Code(s): 34780791, 48724556 Code(s): N17.9 - ACUTE KIDNEY FAILURE, UNSPECIFIED Status: Acute Current Visit: Yes (2) Polyuria SNOMED Code(s): 35132371 Code(s): R35.8 - OTHER POLYURIA Status: Acute Current Visit: Yes (3) Polydipsia SNOMED Code(s): 77016085 Code(s): R63.1 - POLYDIPSIA Status: Acute Current Visit: Yes (4) Fatigue SNOMED Code(s): 13556809 Code(s): R53.83 - OTHER FATIGUE Status: Acute Current Visit: Yes (5) Hyperglycemia due to type 2 diabetes mellitus SNOMED Code(s): 404203062086348, 315140670720940 Code(s): E11.65 - TYPE 2 DIABETES MELLITUS WITH HYPERGLYCEMIA Status: Acute Current Visit: Yes (6) High anion gap metabolic acidosis SNOMED Code(s): 66875728 Code(s): E87.2 - ACIDOSIS Status: Acute Current Visit: Yes (7) Palliative care status SNOMED Code(s): 498724059 Code(s): Z51.5 - ENCOUNTER FOR PALLIATIVE CARE Status: Acute Current Visit: Yes (8) UTI (urinary tract infection) SNOMED Code(s): 56078461 Code(s): N39.0 - URINARY TRACT INFECTION, SITE NOT SPECIFIED Status: Acute Current Visit: No (9) Ulcer of left ankle SNOMED Code(s): 514240044, 838502329 Code(s): L97.329 - NON-PRESSURE CHRONIC ULCER OF LEFT ANKLE WITH UNSP SEVERITY Status: Acute Current Visit: Yes - Problem List Review Problem List Initiated/Reviewed/Updated: Yes - My Orders Last 24 Hours: My Active Orders 02/25/21 Dinner Consistent Carbohydrate Diet [DIET] 02/25/21 17:49 Patient Status [ADT] Routine Oxygen Therapy [RC] PRN Up With Assistance [RC] ASDIRECTED VTE/DVT Education [RC] Per Unit Routine Vital Signs [RC] 00,04,08,12,16,20 Resuscitation Status Routine 02/25/21 18:00 Doxycycline [Vibramycin] 100 mg Sodium Chloride 0.9% [Normal Saline] 100 ml IV Q12H 02/25/21 18:03 Dextrose 50% in Water 50 ml IVPUSH ASDIRECTED PRN Glucagon,Human Recombinant [GlucaGen] 1 mg IM ASDIRECTED PRN 02/25/21 21:00 Cetirizine [ZyrTEC] 5 mg PO BEDTIME Cholecalciferol (Vitamin D3) [Vitamin D3] 125 mcg PO BID Enoxaparin [Lovenox] 30 mg SUBCUT BEDTIME Insulin Lispro [HumaLOG] See Protocol SUBCUT QIDACANDBED 02/26/21 00:09 Acetaminophen [TylenoL] 650 mg PO Q6H PRN 02/26/21 09:00 lisinopriL [Prinivil] 5 mg PO DAILY 02/26/21 09:15 Sodium Chloride 0.9% [Normal Saline] 1,000 ml IV ASDIRECTED - Plan Plan:: Acute kidney injury has grossly resolved. Reduce IV fluids, patient is taking p.o. well at this time. Switch to oral Doxycycline tomorrow am. Anion gap is closed, glucose this morning was 174, much improved. Add patient's home insulin to SSI tomorrow. The patient's fatigue has greatly improved, likely 2/2 improved renal function and glucose control. Increase DVT prophylaxis to 40 mg/day. Patient had reduced air flow mariana lower lobes with some crackles, CXR. Continue diet, ambulation
[2021-02-26] MEDS: Sodium Chloride 0.9% 1,000 ML IV SCH ×2 (10:06→23:24)
[2021-02-26] MEDS: Enoxaparin 40 MG/0.4 ML Syringe SUBCUT SCH (10:53)
[2021-02-26] MEDS ORDERED: Enoxaparin 40 MG/0.4 ML Syringe SUBCUT SCH (11:00)
[2021-02-26] MEDS: Polyethylene Glycol 3350 Powder 17 GM Packet PO SCH (11:34)
[2021-02-26] MEDS: Cetirizine 10 MG Tab PO SCH (20:44)
[2021-02-26] MEDS: Magnesium Hydroxide 400 MG/5 ML Susp 30 ML Cup PO PRN (20:46)
[2021-02-27] MEDS: Doxycycline 100 MG in Sodium Chloride 0.9% 100 ML IV SCH (05:47)
[2021-02-27] MEDS: Insulin Lispro 100 Unit/ML 3 ML KwikPen SUBCUT SCH ×4 (07:39→20:28)
[2021-02-27] MEDS ORDERED: Levofloxacin/Dextrose 5%-Water 500 MG in Premix Bag 1 BAG IV SCH (08:30)
[2021-02-27] MEDS: Polyethylene Glycol 3350 Powder 17 GM Packet PO SCH (08:32)
[2021-02-27] MEDS: Enoxaparin 40 MG/0.4 ML Syringe SUBCUT SCH (08:32)
[2021-02-27] MEDS: Lisinopril 5 MG Tab PO SCH (08:32)
[2021-02-27] MEDS: Acetaminophen 325 MG Tab PO PRN ×2 (08:35→20:26)
--- NOTE | 2021-02-27 08:41 | PCM.PN ---
- General Info Date of Service: 02/27/21 Subjective Update: Complains of arm pain. Still has frequency and urgency or urination. No fever,nausea or any other systemic symptoms. - Review of Systems General: Reports: No Symptoms HEENT: Reports: No Symptoms Pulmonary: Reports: No Symptoms Cardiovascular: Reports: No Symptoms - Patient Data Vitals - Most Recent: Last Vital Signs Temp 97 F 02/27/21 04:00 Pulse 107 H 02/27/21 04:00 Resp 18 02/27/21 04:00 BP 149/84 H 02/27/21 08:32 Pulse Ox 100 02/27/21 04:00 Weight - Most Recent: 64.546 kg I&O - Last 24 Hours: Intake & Output 02/26/21 02/27/21 02/27/21 22:59 06:59 14:59 Intake Total 840 740 Balance 840 740 Lab Results Last 24 Hours: Laboratory Results - last 24 hr 02/26/21 02/26/21 02/26/21 Range/Units 05:18 08:47 08:47 WBC 8.1 (3.0-10.3) x10-3/uL RBC 4.23 (3.60-5.20) x10(6)uL Hgb 12.7 (11.4-15.5) g/dL Hct 39.1 (34.2-48.2) % MCV 92.5 (76.7-100.5) fL MCH 30.0 (23.9-33.9) pg MCHC 32.4 (31.9-34.8) g/dL RDW 13.7 (12.3-16.5) % Plt Count 334 (151-488) x10(3)uL MPV 8.6 (7.1-12.4) fL Neut % (Auto) 58.4 (30.8-76.2) % Lymph % (Auto) 29.3 (18.4-52.1) % [place] % (Auto) 10.3 (4.4-15.7) % Eos % (Auto) 1.2 (0.6-8.1) % Baso % (Auto) 0.8 (0.2-1.5) % Neut # (Auto) 4.7 (1.5-6.3) x10-3/uL Lymph # (Auto) 2.4 (1.0-4.4) x10-3/uL [place] # (Auto) 0.8 (0.3-1.0) x10-3/uL Eos # (Auto) 0.1 (0.0-0.8) x10-3/uL Baso # (Auto) 0.1 (0.0-0.1) x10-3/uL Sodium 134 L (135-145) mmol/L Potassium 5.0 (3.5-5.3) mmol/L Chloride 99 L (100-110) mmol/L Carbon Dioxide 19 L (21-32) mmol/L BUN 34 H (7-18) mg/dL Creatinine 1.1 H (0.55-1.02) mg/dL Est Cr Clr Drug Dosing 30.37 mL/min Estimated GFR (MDRD) 47 L (>60) BUN/Creatinine Ratio 30.9 H (9-20) Glucose 306 H D (80-116) mg/dL POC Glucose 174 H (74-100) mg/dL Calcium 9.2 (8.6-10.2) mg/dL 02/26/21 02/26/21 02/26/21 Range/Units 10:40 16:49 17:00 WBC (3.0-10.3) x10-3/uL RBC (3.60-5.20) x10(6)uL Hgb (11.4-15.5) g/dL Hct (34.2-48.2) % MCV (76.7-100.5) fL MCH (23.9-33.9) pg MCHC (31.9-34.8) g/dL RDW (12.3-16.5) % Plt Count (151-488) x10(3)uL MPV (7.1-12.4) fL Neut % (Auto) (30.8-76.2) % Lymph % (Auto) (18.4-52.1) % [place] % (Auto) (4.4-15.7) % Eos % (Auto) (0.6-8.1) % Baso % (Auto) (0.2-1.5) % Neut # (Auto) (1.5-6.3) x10-3/uL Lymph # (Auto) (1.0-4.4) x10-3/uL [place] # (Auto) (0.3-1.0) x10-3/uL Eos # (Auto) (0.0-0.8) x10-3/uL Baso # (Auto) (0.0-0.1) x10-3/uL Sodium (135-145) mmol/L Potassium (3.5-5.3) mmol/L Chloride (100-110) mmol/L Carbon Dioxide (21-32) mmol/L BUN (7-18) mg/dL Creatinine (0.55-1.02) mg/dL Est Cr Clr Drug Dosing mL/min Estimated GFR (MDRD) (>60) BUN/Creatinine Ratio (9-20) Glucose 365 H (80-116) mg/dL POC Glucose 318 H 428 H* (74-100) mg/dL Calcium (8.6-10.2) mg/dL 02/26/21 02/27/21 Range/Units 20:40 05:52 WBC (3.0-10.3) x10-3/uL RBC (3.60-5.20) x10(6)uL Hgb (11.4-15.5) g/dL Hct (34.2-48.2) % MCV (76.7-100.5) fL MCH (23.9-33.9) pg MCHC (31.9-34.8) g/dL RDW (12.3-16.5) % Plt Count (151-488) x10(3)uL MPV (7.1-12.4) fL Neut % (Auto) (30.8-76.2) % Lymph % (Auto) (18.4-52.1) % [place] % (Auto) (4.4-15.7) % Eos % (Auto) (0.6-8.1) % Baso % (Auto) (0.2-1.5) % Neut # (Auto) (1.5-6.3) x10-3/uL Lymph # (Auto) (1.0-4.4) x10-3/uL [place] # (Auto) (0.3-1.0) x10-3/uL Eos # (Auto) (0.0-0.8) x10-3/uL Baso # (Auto) (0.0-0.1) x10-3/uL Sodium (135-145) mmol/L Potassium (3.5-5.3) mmol/L Chloride (100-110) mmol/L Carbon Dioxide (21-32) mmol/L BUN (7-18) mg/dL Creatinine (0.55-1.02) mg/dL Est Cr Clr Drug Dosing mL/min Estimated GFR (MDRD) (>60) BUN/Creatinine Ratio (9-20) Glucose (80-116) mg/dL POC Glucose 386 H 328 H (74-100) mg/dL Calcium (8.6-10.2) mg/dL Med Orders - Current: Current Medications Acetaminophen (Acetaminophen 325 Mg Tab) 650 mg PO Q6H PRN PRN Reason: Pain Last Admin: 02/27/21 08:35 Dose: 650 mg Documented by: Cetirizine HCl (Cetirizine 10 Mg Tab) 5 mg PO BEDTIME [facility] Last Admin: 02/26/21 20:44 Dose: 5 mg Documented by: Cholecalciferol (Cholecalciferol (Vitamin D3) 25 Mcg Tab) 125 mcg PO BID [facility] Last Admin: 02/26/21 20:44 Dose: 125 mcg Documented by: Dextrose/Water (50% Dextrose In Water 50 Ml Syringe) 50 ml IVPUSH ASDIRECTED PRN PRN Reason: Hypoglycemia Enoxaparin Sodium (Enoxaparin 40 Mg/0.4 Ml Syringe) 40 mg SUBCUT DAILY [facility] Last Admin: 02/27/21 08:32 Dose: 40 mg Documented by: Glucagon (Glucagon,Human Recombinant 1 Mg Vial) 1 mg IM ASDIRECTED PRN PRN Reason: Hypoglycemia Sodium Chloride (Normal Saline) 1,000 mls @ 75 mls/hr IV ASDIRECTED [facility] Last Admin: 02/26/21 23:24 Dose: 75 mls/hr Documented by: Insulin Human Lispro (Insulin Lispro 100 Unit/Ml 3 Ml Kwikpen) 0 unit SUBCUT QIDACANDBED [facility]; Protocol Last Admin: 02/27/21 07:39 Dose: 8 units Documented by: Lisinopril (Lisinopril 5 Mg Tab) 5 mg PO DAILY [facility] Last Admin: 02/27/21 08:32 Dose: 5 mg Documented by: Magnesium Hydroxide (Magnesium Hydroxide 400 Mg/5 Ml Susp 30 Ml Cup) 30 ml PO DAILY PRN PRN Reason: Constipation Last Admin: 02/26/21 20:46 Dose: 30 ml Documented by: Polyethylene Glycol (Polyethylene Glycol 3350 Powder 17 Gm Packet) 17 gm PO DAILY [facility] Last Admin: 02/27/21 08:32 Dose: Not Given Documented by: Discontinued Medications Dextrose/Water (50% Dextrose In Water 50 Ml Syringe) 50 ml IVPUSH ASDIRECTED PRN PRN Reason: Hypoglycemia Dextrose/Water (50% Dextrose In Water 50 Ml Syringe) 50 ml IVPUSH ASDIRECTED PRN PRN Reason: Hypoglycemia Enoxaparin Sodium (Enoxaparin 30 Mg/0.3 Ml Syringe) 30 mg SUBCUT BEDTIME [facility] Last Admin: 02/25/21 20:36 Dose: 30 mg Documented by: Enoxaparin Sodium (Enoxaparin 40 Mg/0.4 Ml Syringe) 40 mg SUBCUT Q12H GIANNI Glucagon (Glucagon,Human Recombinant 1 Mg Vial) 1 mg IM ASDIRECTED PRN PRN Reason: Hypoglycemia Glucagon (Glucagon,Human Recombinant 1 Mg Vial) 1 mg IM ASDIRECTED PRN PRN Reason: Hypoglycemia Sodium Chloride (Normal Saline) 1,000 mls @ 150 mls/hr IV ASDIRECTED [facility] Last Infusion: 02/25/21 18:39 Dose: 125 mls/hr Documented by: Doxycycline Hyclate 100 mg/ (Sodium Chloride) 100 mls @ 100 mls/hr IV Q12H [facility] Last Admin: 02/27/21 05:47 Dose: 100 mls/hr Documented by: Sodium Chloride (Normal Saline) 1,000 mls @ 125 mls/hr IV ASDIRECTED [facility] Last Admin: 02/26/21 01:07 Dose: 125 mls/hr Documented by: Levofloxacin/Dextrose 500 mg/ (Premix) 100 mls @ 100 mls/hr IV Q24H [facility] Insulin Human Regular (Insulin Regular, Human 100 Units/Ml 3 Ml Vial) 10 unit IV ONETIME ONE Stop: 02/25/21 15:34 Last Admin: 02/25/21 17:20 Dose: 10 unit Documented by: Insulin Lispro Protam/Lispro Human (Insulin Lispro Protamine/Lispro 75-25 100 Units/Ml 3 Ml Kwikpen) 0 unit SUBCUT QIDACANDBED [facility]; Protocol Last Admin: 02/25/21 18:39 Dose: Not Given Documented by: - Exam General: Alert HEENT: Pupils Equal Neck: Supple Lungs: Clear to Auscultation Cardiovascular: Regular Rate - Patient Data Lab Results Last 24 hrs: Laboratory Results - last 24 hr 02/26/21 02/26/21 02/26/21 Range/Units 05:18 08:47 08:47 WBC 8.1 (3.0-10.3) x10-3/uL RBC 4.23 (3.60-5.20) x10(6)uL Hgb 12.7 (11.4-15.5) g/dL Hct 39.1 (34.2-48.2) % MCV 92.5 (76.7-100.5) fL MCH 30.0 (23.9-33.9) pg MCHC 32.4 (31.9-34.8) g/dL RDW 13.7 (12.3-16.5) % Plt Count 334 (151-488) x10(3)uL MPV 8.6 (7.1-12.4) fL Neut % (Auto) 58.4 (30.8-76.2) % Lymph % (Auto) 29.3 (18.4-52.1) % [place] % (Auto) 10.3 (4.4-15.7) % Eos % (Auto) 1.2 (0.6-8.1) % Baso % (Auto) 0.8 (0.2-1.5) % Neut # (Auto) 4.7 (1.5-6.3) x10-3/uL Lymph # (Auto) 2.4 (1.0-4.4) x10-3/uL [place] # (Auto) 0.8 (0.3-1.0) x10-3/uL Eos # (Auto) 0.1 (0.0-0.8) x10-3/uL Baso # (Auto) 0.1 (0.0-0.1) x10-3/uL Sodium 134 L (135-145) mmol/L Potassium 5.0 (3.5-5.3) mmol/L Chloride 99 L (100-110) mmol/L Carbon Dioxide 19 L (21-32) mmol/L BUN 34 H (7-18) mg/dL Creatinine 1.1 H (0.55-1.02) mg/dL Est Cr Clr Drug Dosing 30.37 mL/min Estimated GFR (MDRD) 47 L (>60) BUN/Creatinine Ratio 30.9 H (9-20) Glucose 306 H D (80-116) mg/dL POC Glucose 174 H (74-100) mg/dL Calcium 9.2 (8.6-10.2) mg/dL 02/26/21 02/26/21 02/26/21 Range/Units 10:40 16:49 17:00 WBC (3.0-10.3) x10-3/uL RBC (3.60-5.20) x10(6)uL Hgb (11.4-15.5) g/dL Hct (34.2-48.2) % MCV (76.7-100.5) fL MCH (23.9-33.9) pg MCHC (31.9-34.8) g/dL RDW (12.3-16.5) % Plt Count (151-488) x10(3)uL MPV (7.1-12.4) fL Neut % (Auto) (30.8-76.2) % Lymph % (Auto) (18.4-52.1) % [place] % (Auto) (4.4-15.7) % Eos % (Auto) (0.6-8.1) % Baso % (Auto) (0.2-1.5) % Neut # (Auto) (1.5-6.3) x10-3/uL Lymph # (Auto) (1.0-4.4) x10-3/uL [place] # (Auto) (0.3-1.0) x10-3/uL Eos # (Auto) (0.0-0.8) x10-3/uL Baso # (Auto) (0.0-0.1) x10-3/uL Sodium (135-145) mmol/L Potassium (3.5-5.3) mmol/L Chloride (100-110) mmol/L Carbon Dioxide (21-32) mmol/L BUN (7-18) mg/dL Creatinine (0.55-1.02) mg/dL Est Cr Clr Drug Dosing mL/min Estimated GFR (MDRD) (>60) BUN/Creatinine Ratio (9-20) Glucose 365 H (80-116) mg/dL POC Glucose 318 H 428 H* (74-100) mg/dL Calcium (8.6-10.2) mg/dL 02/26/21 02/27/21 Range/Units 20:40 05:52 WBC (3.0-10.3) x10-3/uL RBC (3.60-5.20) x10(6)uL Hgb (11.4-15.5) g/dL Hct (34.2-48.2) % MCV (76.7-100.5) fL MCH (23.9-33.9) pg MCHC (31.9-34.8) g/dL RDW (12.3-16.5) % Plt Count (151-488) x10(3)uL MPV (7.1-12.4) fL Neut % (Auto) (30.8-76.2) % Lymph % (Auto) (18.4-52.1) % [place] % (Auto) (4.4-15.7) % Eos % (Auto) (0.6-8.1) % Baso % (Auto) (0.2-1.5) % Neut # (Auto) (1.5-6.3) x10-3/uL Lymph # (Auto) (1.0-4.4) x10-3/uL [place] # (Auto) (0.3-1.0) x10-3/uL Eos # (Auto) (0.0-0.8) x10-3/uL Baso # (Auto) (0.0-0.1) x10-3/uL Sodium (135-145) mmol/L Potassium (3.5-5.3) mmol/L Chloride (100-110) mmol/L Carbon Dioxide (21-32) mmol/L BUN (7-18) mg/dL Creatinine (0.55-1.02) mg/dL Est Cr Clr Drug Dosing mL/min Estimated GFR (MDRD) (>60) BUN/Creatinine Ratio (9-20) Glucose (80-116) mg/dL POC Glucose 386 H 328 H (74-100) mg/dL Calcium (8.6-10.2) mg/dL Result Diagrams: 02/26/21 08:47 02/26/21 08:47 Sepsis Event Note - Evaluation Sepsis Screening Result: No Definite Risk - Focused Exam Vital Signs: Vital Signs Temp Pulse Resp BP BP Pulse Ox 02/27/21 08:32 149/84 H 02/27/21 04:00 97 F 107 H 18 147/88 H 100 02/27/21 00:00 97 F 99 20 136/73 97 - Problem List & Annotations (1) Diabetes type 2, uncontrolled SNOMED Code(s): 516463214, 765007116 Code(s): E11.65 - TYPE 2 DIABETES MELLITUS WITH HYPERGLYCEMIA Status: Acute Current Visit: Yes Qualifiers: Glycemic state: with hyperglycemia Qualified Code(s): E11.65 - Type 2 diabetes mellitus with hyperglycemia (2) Acute kidney injury SNOMED Code(s): 90039747, 81546681 Code(s): N17.9 - ACUTE KIDNEY FAILURE, UNSPECIFIED Status: Acute Current Visit: Yes (3) Constipation SNOMED Code(s): 02784099 Code(s): K59.00 - CONSTIPATION, UNSPECIFIED Status: Acute Current Visit: No Qualifiers: Constipation type: slow transit constipation Qualified Code(s): K59.01 - Slow transit constipation (4) UTI (urinary tract infection) SNOMED Code(s): 22056097 Code(s): N39.0 - URINARY TRACT INFECTION, SITE NOT SPECIFIED Status: Acute Current Visit: No Qualifiers: Urinary tract infection type: acute cystitis Hematuria presence: without hematuria Qualified Code(s): N30.00 - Acute cystitis without hematuria - Problem List Review Problem List Initiated/Reviewed/Updated: Yes - My Orders Last 24 Hours: My Active Orders 02/27/21 09:00 Doxycycline [Vibra-Tabs] 100 mg PO BID Nitrofurantoin [place]/Macrocryst [Macrobid] 100 mg PO BID 02/28/21 05:11 BASIC METABOLIC PANEL,BMP [CHEM] AM CBC WITH AUTO DIFF [HEME] AM - Assessment Assessment:: Acute kidney injury has grossly resolved. Reduce IV fluids from 125 mL/h to 75 mL/h. The patient is taking p.o. well and voiding well. Continue IV antibiotics for 1 more day and switch to oral doxycycline tomorrow. Glucose was 174 this morning. Continue sliding scale insulin and change to home insulin routine tomorrow. Patient had some reduced airflow in the left lower lobe and crackles bilaterally, chest x-ray today, further recommendations to follow. Increase DVT prophylaxis to 40 mg subcu QD starting today. Continue diet as directed, continue ambulation with assistance. - Plan Plan:: Restart home insulin. Switch to oral Doxy and add Macrobid
[2021-02-27] MEDS ORDERED: Glucagon,Human Recombinant 1 MG Vial IM PRN (08:42)
[2021-02-27] MEDS ORDERED: 50% Dextrose in Water 50 ML Syringe IVPUSH PRN (08:42)
[2021-02-27] MEDS: Doxycycline 100 MG Tab PO SCH ×3 (09:10→20:18)
[2021-02-27] MEDS: Cholecalciferol (Vitamin D3) 25 MCG Tab PO SCH ×3 (09:12→20:18)
[2021-02-27] MEDS ORDERED: Insulin Glargine,Human Rec. Analog 100 Units/ML 3 ML Pen SUBCUT ONE (09:16)
[2021-02-27] MEDS: Insulin Glargine,Human Rec. Analog 100 Units/ML 3 ML Pen SUBCUT SCH ×2 (09:18→20:19)
[2021-02-27] MEDS: Nitrofurantoin Monohydrate/Macrocrystalline 100 MG Cap PO SCH ×2 (09:23→20:18)
[2021-02-27] MEDS: Sodium Chloride 0.9% 1,000 ML IV SCH (14:42)
[2021-02-27] MEDS: metFORMIN 500 MG Tab.ER PO SCH (17:16)
[2021-02-27] MEDS: Cetirizine 10 MG Tab PO SCH (20:18)
[2021-02-27] MEDS: Magnesium Hydroxide 400 MG/5 ML Susp 30 ML Cup PO PRN (20:27)
[2021-02-28] MEDS: Insulin Lispro 100 Unit/ML 3 ML KwikPen SUBCUT SCH ×4 (08:15→20:44)
[2021-02-28] MEDS: metFORMIN 500 MG Tab.ER PO SCH ×2 (08:21→17:29)
--- NOTE | 2021-02-28 08:55 | PCM.PN ---
- General Info Date of Service: 02/28/21 Subjective Update: Mild back pain. Also noted to have urinary retention,with over 500 cc Functional Status: Reports: Pain Controlled - Review of Systems General: Reports: No Symptoms HEENT: Reports: No Symptoms Pulmonary: Reports: No Symptoms Cardiovascular: Reports: No Symptoms Gastrointestinal: Reports: No Symptoms Genitourinary: Reports: No Symptoms - Patient Data Vitals - Most Recent: Last Vital Signs Temp 97 F 02/28/21 04:00 Pulse 98 02/28/21 04:00 Resp 18 02/28/21 04:00 BP 151/82 H 02/28/21 04:00 Pulse Ox 94 L 02/28/21 04:00 Weight - Most Recent: 64.047 kg Lab Results Last 24 Hours: Laboratory Results - last 24 hr 02/27/21 02/27/21 02/27/21 Range/Units 11:17 17:10 20:26 WBC (3.0-10.3) x10-3/uL RBC (3.60-5.20) x10(6)uL Hgb (11.4-15.5) g/dL Hct (34.2-48.2) % MCV (76.7-100.5) fL MCH (23.9-33.9) pg MCHC (31.9-34.8) g/dL RDW (12.3-16.5) % Plt Count (151-488) x10(3)uL MPV (7.1-12.4) fL Neut % (Auto) (30.8-76.2) % Lymph % (Auto) (18.4-52.1) % [place] % (Auto) (4.4-15.7) % Eos % (Auto) (0.6-8.1) % Baso % (Auto) (0.2-1.5) % Neut # (Auto) (1.5-6.3) x10-3/uL Lymph # (Auto) (1.0-4.4) x10-3/uL [place] # (Auto) (0.3-1.0) x10-3/uL Eos # (Auto) (0.0-0.8) x10-3/uL Baso # (Auto) (0.0-0.1) x10-3/uL Sodium (135-145) mmol/L Potassium (3.5-5.3) mmol/L Chloride (100-110) mmol/L Carbon Dioxide (21-32) mmol/L BUN (7-18) mg/dL Creatinine (0.55-1.02) mg/dL Est Cr Clr Drug Dosing mL/min Estimated GFR (MDRD) (>60) BUN/Creatinine Ratio (9-20) Glucose (80-116) mg/dL POC Glucose 309 H 328 H 302 H (74-100) mg/dL Calcium (8.6-10.2) mg/dL 02/28/21 02/28/21 02/28/21 Range/Units 05:22 06:15 06:15 WBC 6.4 (3.0-10.3) x10-3/uL RBC 4.35 (3.60-5.20) x10(6)uL Hgb 13.1 (11.4-15.5) g/dL Hct 39.2 (34.2-48.2) % MCV 90.0 (76.7-100.5) fL MCH 30.0 (23.9-33.9) pg MCHC 33.3 (31.9-34.8) g/dL RDW 13.2 (12.3-16.5) % Plt Count 322 (151-488) x10(3)uL MPV 8.1 (7.1-12.4) fL Neut % (Auto) 54.5 (30.8-76.2) % Lymph % (Auto) 31.3 (18.4-52.1) % [place] % (Auto) 11.8 (4.4-15.7) % Eos % (Auto) 1.7 (0.6-8.1) % Baso % (Auto) 0.7 (0.2-1.5) % Neut # (Auto) 3.5 (1.5-6.3) x10-3/uL Lymph # (Auto) 2.0 (1.0-4.4) x10-3/uL [place] # (Auto) 0.8 (0.3-1.0) x10-3/uL Eos # (Auto) 0.1 (0.0-0.8) x10-3/uL Baso # (Auto) 0.0 (0.0-0.1) x10-3/uL Sodium 135 (135-145) mmol/L Potassium 4.9 (3.5-5.3) mmol/L Chloride 99 L (100-110) mmol/L Carbon Dioxide 23 (21-32) mmol/L BUN 17 D (7-18) mg/dL Creatinine 0.8 (0.55-1.02) mg/dL Est Cr Clr Drug Dosing 41.76 mL/min Estimated GFR (MDRD) > 60 (>60) BUN/Creatinine Ratio 21.3 H (9-20) Glucose 201 H D (80-116) mg/dL POC Glucose 240 H (74-100) mg/dL Calcium 9.1 (8.6-10.2) mg/dL Med Orders - Current: Current Medications Acetaminophen (Acetaminophen 325 Mg Tab) 650 mg PO Q6H PRN PRN Reason: Pain Last Admin: 02/27/21 20:26 Dose: 650 mg Documented by: Cholecalciferol (Cholecalciferol (Vitamin D3) 25 Mcg Tab) 125 mcg PO BID [facility] Last Admin: 02/27/21 20:18 Dose: 125 mcg Documented by: Dextrose/Water (50% Dextrose In Water 50 Ml Syringe) 50 ml IVPUSH ASDIRECTED PRN PRN Reason: Hypoglycemia Doxycycline Hyclate (Doxycycline 100 Mg Tab) 100 mg PO BID [facility] Last Admin: 02/27/21 20:18 Dose: 100 mg Documented by: Enoxaparin Sodium (Enoxaparin 40 Mg/0.4 Ml Syringe) 40 mg SUBCUT DAILY [facility] Last Admin: 02/27/21 08:32 Dose: 40 mg Documented by: Glucagon (Glucagon,Human Recombinant 1 Mg Vial) 1 mg IM ASDIRECTED PRN PRN Reason: Hypoglycemia Insulin Glargine (Insulin Glargine,Human Rec. Analog 100 Units/Ml 3 Ml Pen) 15 units SUBCUT BID [facility] Last Admin: 02/27/21 20:19 Dose: 15 unit Documented by: Insulin Human Lispro (Insulin Lispro 100 Unit/Ml 3 Ml Kwikpen) 0 unit SUBCUT QIDACANDBED [facility]; Protocol Last Admin: 02/28/21 08:15 Dose: 4 units Documented by: Lisinopril (Lisinopril 5 Mg Tab) 5 mg PO DAILY [facility] Last Admin: 02/27/21 08:32 Dose: 5 mg Documented by: Magnesium Hydroxide (Magnesium Hydroxide 400 Mg/5 Ml Susp 30 Ml Cup) 30 ml PO DAILY PRN PRN Reason: Constipation Last Admin: 02/27/21 20:27 Dose: 30 ml Documented by: Metformin HCl (Metformin 500 Mg Tab.Er) 1,000 mg PO BIDMEALS [facility] Last Admin: 02/28/21 08:21 Dose: 1,000 mg Documented by: Nitrofurantoin Macrocrystals (Nitrofurantoin Monohydrate/Macrocrystalline 100 Mg Cap) 100 mg PO BID [facility] Last Admin: 02/27/21 20:18 Dose: 100 mg Documented by: Polyethylene Glycol (Polyethylene Glycol 3350 Powder 17 Gm Packet) 17 gm PO DAILY [facility] Last Admin: 02/27/21 08:32 Dose: Not Given Documented by: Discontinued Medications Cetirizine HCl (Cetirizine 10 Mg Tab) 5 mg PO BEDTIME [facility] Last Admin: 02/27/21 20:18 Dose: 5 mg Documented by: Dextrose/Water (50% Dextrose In Water 50 Ml Syringe) 50 ml IVPUSH ASDIRECTED PRN PRN Reason: Hypoglycemia Dextrose/Water (50% Dextrose In Water 50 Ml Syringe) 50 ml IVPUSH ASDIRECTED PRN PRN Reason: Hypoglycemia Dextrose/Water (50% Dextrose In Water 50 Ml Syringe) 50 ml IVPUSH ASDIRECTED PRN PRN Reason: Hypoglycemia Enoxaparin Sodium (Enoxaparin 30 Mg/0.3 Ml Syringe) 30 mg SUBCUT BEDTIME [facility] Last Admin: 02/25/21 20:36 Dose: 30 mg Documented by: Enoxaparin Sodium (Enoxaparin 40 Mg/0.4 Ml Syringe) 40 mg SUBCUT Q12H [facility] Glucagon (Glucagon,Human Recombinant 1 Mg Vial) 1 mg IM ASDIRECTED PRN PRN Reason: Hypoglycemia Glucagon (Glucagon,Human Recombinant 1 Mg Vial) 1 mg IM ASDIRECTED PRN PRN Reason: Hypoglycemia Glucagon (Glucagon,Human Recombinant 1 Mg Vial) 1 mg IM ASDIRECTED PRN PRN Reason: Hypoglycemia Sodium Chloride (Normal Saline) 1,000 mls @ 150 mls/hr IV ASDIRECTED [facility] Last Infusion: 02/25/21 18:39 Dose: 125 mls/hr Documented by: Doxycycline Hyclate 100 mg/ (Sodium Chloride) 100 mls @ 100 mls/hr IV Q12H [facility] Last Admin: 02/27/21 05:47 Dose: 100 mls/hr Documented by: Sodium Chloride (Normal Saline) 1,000 mls @ 125 mls/hr IV ASDIRECTED [facility] Last Admin: 02/26/21 01:07 Dose: 125 mls/hr Documented by: Sodium Chloride (Normal Saline) 1,000 mls @ 75 mls/hr IV ASDIRECTED [facility] Last Admin: 02/27/21 14:42 Dose: 75 mls/hr Documented by: Levofloxacin/Dextrose 500 mg/ (Premix) 100 mls @ 100 mls/hr IV Q24H [facility] Last Admin: 02/27/21 09:43 Dose: Not Given Documented by: Insulin Human Regular (Insulin Regular, Human 100 Units/Ml 3 Ml Vial) 10 unit IV ONETIME ONE Stop: 02/25/21 15:34 Last Admin: 02/25/21 17:20 Dose: 10 unit Documented by: Insulin Lispro Protam/Lispro Human (Insulin Lispro Protamine/Lispro 75-25 100 Units/Ml 3 Ml Kwikpen) 0 unit SUBCUT QIDACANDBED [facility]; Protocol Last Admin: 02/25/21 18:39 Dose: Not Given Documented by: - Exam General: Alert, Oriented HEENT: Pupils Equal Neck: Supple Cardiovascular: Regular Rate - Patient Data Lab Results Last 24 hrs: Laboratory Results - last 24 hr 02/27/21 02/27/21 02/27/21 Range/Units 11:17 17:10 20:26 WBC (3.0-10.3) x10-3/uL RBC (3.60-5.20) x10(6)uL Hgb (11.4-15.5) g/dL Hct (34.2-48.2) % MCV (76.7-100.5) fL MCH (23.9-33.9) pg MCHC (31.9-34.8) g/dL RDW (12.3-16.5) % Plt Count (151-488) x10(3)uL MPV (7.1-12.4) fL Neut % (Auto) (30.8-76.2) % Lymph % (Auto) (18.4-52.1) % [place] % (Auto) (4.4-15.7) % Eos % (Auto) (0.6-8.1) % Baso % (Auto) (0.2-1.5) % Neut # (Auto) (1.5-6.3) x10-3/uL Lymph # (Auto) (1.0-4.4) x10-3/uL [place] # (Auto) (0.3-1.0) x10-3/uL Eos # (Auto) (0.0-0.8) x10-3/uL Baso # (Auto) (0.0-0.1) x10-3/uL Sodium (135-145) mmol/L Potassium (3.5-5.3) mmol/L Chloride (100-110) mmol/L Carbon Dioxide (21-32) mmol/L BUN (7-18) mg/dL Creatinine (0.55-1.02) mg/dL Est Cr Clr Drug Dosing mL/min Estimated GFR (MDRD) (>60) BUN/Creatinine Ratio (9-20) Glucose (80-116) mg/dL POC Glucose 309 H 328 H 302 H (74-100) mg/dL Calcium (8.6-10.2) mg/dL 02/28/21 02/28/21 02/28/21 Range/Units 05:22 06:15 06:15 WBC 6.4 (3.0-10.3) x10-3/uL RBC 4.35 (3.60-5.20) x10(6)uL Hgb 13.1 (11.4-15.5) g/dL Hct 39.2 (34.2-48.2) % MCV 90.0 (76.7-100.5) fL MCH 30.0 (23.9-33.9) pg MCHC 33.3 (31.9-34.8) g/dL RDW 13.2 (12.3-16.5) % Plt Count 322 (151-488) x10(3)uL MPV 8.1 (7.1-12.4) fL Neut % (Auto) 54.5 (30.8-76.2) % Lymph % (Auto) 31.3 (18.4-52.1) % [place] % (Auto) 11.8 (4.4-15.7) % Eos % (Auto) 1.7 (0.6-8.1) % Baso % (Auto) 0.7 (0.2-1.5) % Neut # (Auto) 3.5 (1.5-6.3) x10-3/uL Lymph # (Auto) 2.0 (1.0-4.4) x10-3/uL [place] # (Auto) 0.8 (0.3-1.0) x10-3/uL Eos # (Auto) 0.1 (0.0-0.8) x10-3/uL Baso # (Auto) 0.0 (0.0-0.1) x10-3/uL Sodium 135 (135-145) mmol/L Potassium 4.9 (3.5-5.3) mmol/L Chloride 99 L (100-110) mmol/L Carbon Dioxide 23 (21-32) mmol/L BUN 17 D (7-18) mg/dL Creatinine 0.8 (0.55-1.02) mg/dL Est Cr Clr Drug Dosing 41.76 mL/min Estimated GFR (MDRD) > 60 (>60) BUN/Creatinine Ratio 21.3 H (9-20) Glucose 201 H D (80-116) mg/dL POC Glucose 240 H (74-100) mg/dL Calcium 9.1 (8.6-10.2) mg/dL Result Diagrams: 02/28/21 06:15 02/28/21 06:15 Sepsis Event Note - Evaluation Sepsis Screening Result: No Definite Risk - Focused Exam Vital Signs: Vital Signs Temp Pulse Resp BP Pulse Ox 02/28/21 04:00 97 F 98 18 151/82 H 94 L 02/28/21 01:06 97 F 104 H 18 136/81 98 - Problem List & Annotations (1) Diabetes type 2, uncontrolled SNOMED Code(s): 581353131, 889930450 Code(s): E11.65 - TYPE 2 DIABETES MELLITUS WITH HYPERGLYCEMIA Status: Acute Current Visit: Yes Qualifiers: Glycemic state: with hyperglycemia Qualified Code(s): E11.65 - Type 2 diabetes mellitus with hyperglycemia (2) Acute kidney injury SNOMED Code(s): 34137398, 80240785 Code(s): N17.9 - ACUTE KIDNEY FAILURE, UNSPECIFIED Status: Acute Current Visit: Yes (3) Constipation SNOMED Code(s): 50556250 Code(s): K59.00 - CONSTIPATION, UNSPECIFIED Status: Acute Current Visit: No Qualifiers: Constipation type: slow transit constipation Qualified Code(s): K59.01 - Slow transit constipation (4) UTI (urinary tract infection) SNOMED Code(s): 80289234 Code(s): N39.0 - URINARY TRACT INFECTION, SITE NOT SPECIFIED Status: Acute Current Visit: No Qualifiers: Urinary tract infection type: acute cystitis Hematuria presence: without hematuria Qualified Code(s): N30.00 - Acute cystitis without hematuria (5) Chronic retention of urine SNOMED Code(s): 056071606 Code(s): R33.9 - RETENTION OF URINE, UNSPECIFIED Status: Acute Current Visit: Yes - Problem List Review Problem List Initiated/Reviewed/Updated: Yes - My Orders Last 24 Hours: My Active Orders 02/27/21 08:42 Dextrose 50% in Water 50 ml IVPUSH ASDIRECTED PRN Glucagon,Human Recombinant [GlucaGen] 1 mg IM ASDIRECTED PRN 02/27/21 09:00 Doxycycline [Vibra-Tabs] 100 mg PO BID Insulin Glarg,Human.Rec.Analog [LantUS Solostar] 15 units SUBCUT BID Nitrofurantoin [place]/Macrocryst [Macrobid] 100 mg PO BID 02/27/21 17:25 Convert IV to Saline Lock [OM.PC] Routine 02/27/21 18:00 metFORMIN [Glucophage XR] 1,000 mg PO BIDMEALS 02/28/21 08:51 Urinary Catheter Assessment [RC] QSHIFT 02/28/21 08:52 Renal Comp [US] Routine - Assessment Assessment:: Acute kidney injury has grossly resolved. Reduce IV fluids from 125 mL/h to 75 mL/h. The patient is taking p.o. well and voiding well. Continue IV antibiotics for 1 more day and switch to oral doxycycline tomorrow. Glucose was 174 this morning. Continue sliding scale insulin and change to home insulin routine tomorrow. Patient had some reduced airflow in the left lower lobe and crackles bilaterally, chest x-ray today, further recommendations to follow. Increase DVT prophylaxis to 40 mg subcu QD starting today. Continue diet as directed, continue ambulation with assistance. - Plan Plan:: I suspect CUR. I have recommended intermittent urinary assessment and drainage with over 300 cc. Obtain a renal US. DC antihistamines.
[2021-02-28] MEDS: Polyethylene Glycol 3350 Powder 17 GM Packet PO SCH (09:11)
[2021-02-28] MEDS: Nitrofurantoin Monohydrate/Macrocrystalline 100 MG Cap PO SCH (09:11)
[2021-02-28] MEDS: Enoxaparin 40 MG/0.4 ML Syringe SUBCUT SCH (09:11)
[2021-02-28] MEDS: Cholecalciferol (Vitamin D3) 25 MCG Tab PO SCH ×2 (09:12→20:36)
[2021-02-28] MEDS: Doxycycline 100 MG Tab PO SCH ×2 (09:12→20:48)
[2021-02-28] MEDS: Lisinopril 5 MG Tab PO SCH (09:14)
[2021-02-28] MEDS: Insulin Glargine,Human Rec. Analog 100 Units/ML 3 ML Pen SUBCUT SCH ×2 (09:34→20:45)
--- NOTE | 2021-02-28 11:55 | CR ---
INDICATION: Decreased breath sounds, crackles, cough. CHEST TWO VIEWS: PA and two lateral views of the chest were obtained 02/26/21 and compared with 12/28/16. Poor inspiration is noted. The heart did not appear grossly enlarged, the aorta is tortuous with some calcification in the proximal descending portion. A moderate dextroconcave scoliosis is noted at the thoracolumbar spine with rotatory component in the lumbar area. Compression fractures are noted in the mid to lower thoracic spine which are increased or new compared with the previous study of 2017. A definite active infiltrate or effusion was not identified. IMPRESSION: 1. No definite acute process. 2. ASD aorta. 3. Multiple compression fractures in the midthoracic spine, at least two of which are new compared with the previous study. 4. Scoliosis. 5. Post left mastectomy. MTDD
[2021-02-28] MEDS: Acetaminophen 325 MG Tab PO PRN (16:17)
--- NOTE | 2021-02-28 16:24 | US ---
INDICATION: Chronic urinary retention. RENAL ULTRASOUND COMPLETE: Utilizing 2-D realtime and color flow imaging examination of the kidneys and urinary bladder were obtained 02/28/21. No comparisons. The kidneys appear fairly normal for age without evidence of mass lesions, either cystic or solid or evidence of calculi or obstructive uropathy. The right kidney measured 9.9 x 5.6 x 4.9 cm, with the left kidney measuring 8.7 x 4.6 x 4.5 cm. The urinary bladder, however, was abnormal with irregularly thickened wall which may be trabeculated or possibly on the basis of cystitis. There is a considerable amount of debris suggested in the urinary bladder additionally which may be on the basis of infection and/or hemorrhage and should be correlated clinically. Bilateral ureteral jets were noted. When full, urinary bladder had a volume of approximately 222 cc. Post voiding volume of the urinary bladder was 190.44 compatible with a large post voiding residual and significant degree of urinary retention. IMPRESSION: 1. Urinary retention with large post voiding residual and irregularly thickened urinary bladder wall, etiology indeterminate - cystitis versus trabeculation, possibly from obstructive disease. 2. Essentially normal appearing upper urinary tracts. MTDD
[2021-02-28] MEDS: Cetirizine 10 MG Tab PO SCH (20:36)
[2021-02-28] MEDS: Magnesium Hydroxide 400 MG/5 ML Susp 30 ML Cup PO PRN (21:08)
--- NOTE | 2021-03-01 08:56 | PCM.PN ---
- General Info Date of Service: 03/01/21 Subjective Update: Mild back pain. Frequency of urine,Also noted to have urinary retention,with over 300 cc Functional Status: Reports: Pain Controlled - Review of Systems General: Reports: No Symptoms HEENT: Reports: No Symptoms Pulmonary: Reports: No Symptoms Genitourinary: Reports: Frequency - Patient Data Vitals - Most Recent: Last Vital Signs Temp 98.0 F 03/01/21 08:00 Pulse 104 H 03/01/21 08:00 Resp 18 03/01/21 08:00 BP 115/72 03/01/21 08:00 Pulse Ox 98 03/01/21 08:00 Weight - Most Recent: 64.319 kg I&O - Last 24 Hours: Intake & Output 02/28/21 03/01/21 03/01/21 22:59 06:59 14:59 Intake Total 200 Output Total 850 Balance -650 Lab Results Last 24 Hours: Laboratory Results - last 24 hr 02/28/21 02/28/21 02/28/21 Range/Units 11:24 17:26 20:17 POC Glucose 304 H 316 H 302 H (74-100) mg/dL 03/01/21 Range/Units 06:29 POC Glucose 194 H (74-100) mg/dL Med Orders - Current: Current Medications Acetaminophen (Acetaminophen 325 Mg Tab) 650 mg PO Q6H PRN PRN Reason: Pain Last Admin: 02/28/21 16:17 Dose: 650 mg Documented by: Cetirizine HCl (Cetirizine 10 Mg Tab) 5 mg PO BEDTIME [facility] Last Admin: 02/28/21 20:36 Dose: 5 mg Documented by: Cholecalciferol (Cholecalciferol (Vitamin D3) 25 Mcg Tab) 125 mcg PO BID [facility] Last Admin: 02/28/21 20:36 Dose: 125 mcg Documented by: Dextrose/Water (50% Dextrose In Water 50 Ml Syringe) 50 ml IVPUSH ASDIRECTED PRN PRN Reason: Hypoglycemia Doxycycline Hyclate (Doxycycline 100 Mg Tab) 100 mg PO BID [facility] Last Admin: 02/28/21 20:48 Dose: 100 mg Documented by: Enoxaparin Sodium (Enoxaparin 40 Mg/0.4 Ml Syringe) 40 mg SUBCUT DAILY [facility] Last Admin: 02/28/21 09:11 Dose: 40 mg Documented by: Glucagon (Glucagon,Human Recombinant 1 Mg Vial) 1 mg IM ASDIRECTED PRN PRN Reason: Hypoglycemia Insulin Glargine (Insulin Glargine,Human Rec. Analog 100 Units/Ml 3 Ml Pen) 15 units SUBCUT BID [facility] Last Admin: 02/28/21 20:45 Dose: 15 unit Documented by: Insulin Human Lispro (Insulin Lispro 100 Unit/Ml 3 Ml Kwikpen) 0 unit SUBCUT QIDACANDBED [facility]; Protocol Last Admin: 02/28/21 20:44 Dose: 8 units Documented by: Lisinopril (Lisinopril 5 Mg Tab) 5 mg PO DAILY [facility] Last Admin: 02/28/21 09:14 Dose: 5 mg Documented by: Magnesium Hydroxide (Magnesium Hydroxide 400 Mg/5 Ml Susp 30 Ml Cup) 30 ml PO DAILY PRN PRN Reason: Constipation Last Admin: 02/28/21 21:08 Dose: 30 ml Documented by: Metformin HCl (Metformin 500 Mg Tab.Er) 1,000 mg PO BIDMEALS [facility] Last Admin: 02/28/21 17:29 Dose: 1,000 mg Documented by: Polyethylene Glycol (Polyethylene Glycol 3350 Powder 17 Gm Packet) 17 gm PO DAILY [facility] Last Admin: 02/28/21 09:11 Dose: 17 gm Documented by: Discontinued Medications Dextrose/Water (50% Dextrose In Water 50 Ml Syringe) 50 ml IVPUSH ASDIRECTED PRN PRN Reason: Hypoglycemia Dextrose/Water (50% Dextrose In Water 50 Ml Syringe) 50 ml IVPUSH ASDIRECTED PRN PRN Reason: Hypoglycemia Dextrose/Water (50% Dextrose In Water 50 Ml Syringe) 50 ml IVPUSH ASDIRECTED PRN PRN Reason: Hypoglycemia Enoxaparin Sodium (Enoxaparin 30 Mg/0.3 Ml Syringe) 30 mg SUBCUT BEDTIME [facility] Last Admin: 02/25/21 20:36 Dose: 30 mg Documented by: Enoxaparin Sodium (Enoxaparin 40 Mg/0.4 Ml Syringe) 40 mg SUBCUT Q12H [facility] Glucagon (Glucagon,Human Recombinant 1 Mg Vial) 1 mg IM ASDIRECTED PRN PRN Reason: Hypoglycemia Glucagon (Glucagon,Human Recombinant 1 Mg Vial) 1 mg IM ASDIRECTED PRN PRN Reason: Hypoglycemia Glucagon (Glucagon,Human Recombinant 1 Mg Vial) 1 mg IM ASDIRECTED PRN PRN Reason: Hypoglycemia Sodium Chloride (Normal Saline) 1,000 mls @ 150 mls/hr IV ASDIRECTED [facility] Last Infusion: 02/25/21 18:39 Dose: 125 mls/hr Documented by: Doxycycline Hyclate 100 mg/ (Sodium Chloride) 100 mls @ 100 mls/hr IV Q12H [facility] Last Admin: 02/27/21 05:47 Dose: 100 mls/hr Documented by: Sodium Chloride (Normal Saline) 1,000 mls @ 125 mls/hr IV ASDIRECTED [facility] Last Admin: 02/26/21 01:07 Dose: 125 mls/hr Documented by: Sodium Chloride (Normal Saline) 1,000 mls @ 75 mls/hr IV ASDIRECTED [facility] Last Admin: 02/27/21 14:42 Dose: 75 mls/hr Documented by: Levofloxacin/Dextrose 500 mg/ (Premix) 100 mls @ 100 mls/hr IV Q24H [facility] Last Admin: 02/27/21 09:43 Dose: Not Given Documented by: Insulin Human Regular (Insulin Regular, Human 100 Units/Ml 3 Ml Vial) 10 unit IV ONETIME ONE Stop: 02/25/21 15:34 Last Admin: 02/25/21 17:20 Dose: 10 unit Documented by: Insulin Lispro Protam/Lispro Human (Insulin Lispro Protamine/Lispro 75-25 100 Units/Ml 3 Ml Kwikpen) 0 unit SUBCUT QIDACANDBED [facility]; Protocol Last Admin: 02/25/21 18:39 Dose: Not Given Documented by: Nitrofurantoin Macrocrystals (Nitrofurantoin Monohydrate/Macrocrystalline 100 Mg Cap) 100 mg PO BID [facility] Last Admin: 02/28/21 09:11 Dose: 100 mg Documented by: - Exam General: Alert, Oriented - Patient Data Lab Results Last 24 hrs: Laboratory Results - last 24 hr 02/28/21 02/28/21 02/28/21 Range/Units 11:24 17:26 20:17 POC Glucose 304 H 316 H 302 H (74-100) mg/dL 03/01/21 Range/Units 06:29 POC Glucose 194 H (74-100) mg/dL Result Diagrams: 02/28/21 06:15 02/28/21 06:15 Sepsis Event Note - Evaluation Sepsis Screening Result: No Definite Risk - Focused Exam Vital Signs: Vital Signs Temp Pulse Resp BP Pulse Ox 03/01/21 08:00 98.0 F 104 H 18 115/72 98 03/01/21 03:35 97.8 F 115 H 18 110/64 93 L 03/01/21 00:35 97.5 F 102 H 18 129/71 95 - Problem List & Annotations (1) Diabetes type 2, uncontrolled SNOMED Code(s): 686697165, 054952738 Code(s): E11.65 - TYPE 2 DIABETES MELLITUS WITH HYPERGLYCEMIA Status: Acute Current Visit: Yes Qualifiers: Glycemic state: with hyperglycemia Qualified Code(s): E11.65 - Type 2 diabetes mellitus with hyperglycemia (2) Acute kidney injury SNOMED Code(s): 30716624, 70720456 Code(s): N17.9 - ACUTE KIDNEY FAILURE, UNSPECIFIED Status: Acute Current Visit: Yes (3) Constipation SNOMED Code(s): 44859398 Code(s): K59.00 - CONSTIPATION, UNSPECIFIED Status: Acute Current Visit: No Qualifiers: Constipation type: slow transit constipation Qualified Code(s): K59.01 - Slow transit constipation (4) UTI (urinary tract infection) SNOMED Code(s): 79711207 Code(s): N39.0 - URINARY TRACT INFECTION, SITE NOT SPECIFIED Status: Acute Current Visit: No Qualifiers: Urinary tract infection type: acute cystitis Hematuria presence: without hematuria Qualified Code(s): N30.00 - Acute cystitis without hematuria (5) Chronic retention of urine SNOMED Code(s): 233805763 Code(s): R33.9 - RETENTION OF URINE, UNSPECIFIED Status: Acute Current Visit: Yes - Problem List Review Problem List Initiated/Reviewed/Updated: Yes - My Orders Last 24 Hours: My Active Orders 02/28/21 08:51 Urinary Catheter Assessment [RC] ,,02/28/21 09:00 Bladder Scan [RC] ,,03/01/21 08:49 UA W/MICROSCOPIC [URIN] Routine - Assessment Assessment:: Acute kidney injury has grossly resolved. Reduce IV fluids from 125 mL/h to 75 mL/h. The patient is taking p.o. well and voiding well. Continue IV antibiotics for 1 more day and switch to oral doxycycline tomorrow. Glucose was 174 this morning. Continue sliding scale insulin and change to home insulin routine tomorrow. Patient had some reduced airflow in the left lower lobe and crackles bilaterally, chest x-ray today, further recommendations to follow. Increase DVT prophylaxis to 40 mg subcu QD starting today. Continue diet as directed, continue ambulation with assistance. - Plan Plan:: I suspect CUR. Repoeat UA. A referral to urology as an outpatient.
[2021-03-01] MEDS: metFORMIN 500 MG Tab.ER PO SCH ×2 (09:00→17:53)
[2021-03-01] MEDS: Insulin Lispro 100 Unit/ML 3 ML KwikPen SUBCUT SCH ×4 (09:34→20:09)
[2021-03-01] MEDS: Insulin Glargine,Human Rec. Analog 100 Units/ML 3 ML Pen SUBCUT SCH ×2 (09:38→20:10)
[2021-03-01] MEDS: Enoxaparin 40 MG/0.4 ML Syringe SUBCUT SCH (09:39)
[2021-03-01] MEDS: Polyethylene Glycol 3350 Powder 17 GM Packet PO SCH (09:39)
[2021-03-01] MEDS: Lisinopril 5 MG Tab PO SCH (09:42)
[2021-03-01] MEDS: Cholecalciferol (Vitamin D3) 25 MCG Tab PO SCH ×2 (09:42→20:09)
[2021-03-01] MEDS: Doxycycline 100 MG Tab PO SCH ×2 (09:42→20:09)
[2021-03-01] MEDS: Acetaminophen 325 MG Tab PO PRN ×2 (11:43→23:31)
[2021-03-01] MEDS: Cetirizine 10 MG Tab PO SCH (20:09)
--- NOTE | 2021-03-02 09:15 | PCM.PN ---
- General Info Date of Service: 03/02/21 Subjective Update: Urinary retention still present. Frequency of urine. Sugars trending down.No systemic symptoms Functional Status: Reports: Pain Controlled - Review of Systems General: Reports: No Symptoms HEENT: Reports: No Symptoms Pulmonary: Reports: No Symptoms Cardiovascular: Reports: No Symptoms Gastrointestinal: Reports: No Symptoms - Patient Data Vitals - Most Recent: Last Vital Signs Temp 98 F 03/02/21 04:00 Pulse 106 H 03/02/21 04:00 Resp 18 03/02/21 04:00 BP 138/78 03/02/21 04:00 Pulse Ox 97 03/02/21 04:00 Weight - Most Recent: 64.58 kg I&O - Last 24 Hours: Intake & Output 03/01/21 03/02/21 03/02/21 22:59 06:59 14:59 Output Total 325 430 Balance -325 -430 Lab Results Last 24 Hours: Laboratory Results - last 24 hr 03/01/21 03/01/21 03/01/21 Range/Units 11:34 12:30 17:47 POC Glucose 357 H 301 H (74-100) mg/dL Urine Color Yellow (YELLOW) Urine Appearance Cloudy (CLEAR) Urine pH 5.0 (5.0-6.5) Ur Specific [place] 1.025 (1.010-1.025) Urine Protein 30 H (NEGATIVE) mg/dL Urine Glucose (UA) >1000 H (NORMAL) mg/dL Urine Ketones Negative (NEGATIVE) mg/dL Urine Occult Blood Large H (NEGATIVE) Urine Nitrite Negative (NEGATIVE) Urine Bilirubin Negative (NEGATIVE) Urine Urobilinogen Normal (NEGATIVE) mg/dL Ur Leukocyte Esterase Large H (NEGATIVE) Urine RBC 5-10 H (0-5) Urine WBC 75-100 H (0-5) Ur Squamous Epith Cells Occasional (NS,R,O) Urine Bacteria Few H (NS) 03/01/21 Range/Units 20:08 POC Glucose 329 H (74-100) mg/dL Urine Color (YELLOW) Urine Appearance (CLEAR) Urine pH (5.0-6.5) Ur Specific [place] (1.010-1.025) Urine Protein (NEGATIVE) mg/dL Urine Glucose (UA) (NORMAL) mg/dL Urine Ketones (NEGATIVE) mg/dL Urine Occult Blood (NEGATIVE) Urine Nitrite (NEGATIVE) Urine Bilirubin (NEGATIVE) Urine Urobilinogen (NEGATIVE) mg/dL Ur Leukocyte Esterase (NEGATIVE) Urine RBC (0-5) Urine WBC (0-5) Ur Squamous Epith Cells (NS,R,O) Urine Bacteria (NS) Med Orders - Current: Current Medications Acetaminophen (Acetaminophen 325 Mg Tab) 650 mg PO Q6H PRN PRN Reason: Pain Last Admin: 03/01/21 23:31 Dose: 650 mg Documented by: Cetirizine HCl (Cetirizine 10 Mg Tab) 5 mg PO BEDTIME [facility] Last Admin: 03/01/21 20:09 Dose: 5 mg Documented by: Cholecalciferol (Cholecalciferol (Vitamin D3) 25 Mcg Tab) 125 mcg PO BID [facility] Last Admin: 03/01/21 20:09 Dose: 125 mcg Documented by: Dextrose/Water (50% Dextrose In Water 50 Ml Syringe) 50 ml IVPUSH ASDIRECTED PRN PRN Reason: Hypoglycemia Doxycycline Hyclate (Doxycycline 100 Mg Tab) 100 mg PO BID [facility] Last Admin: 03/01/21 20:09 Dose: 100 mg Documented by: Enoxaparin Sodium (Enoxaparin 40 Mg/0.4 Ml Syringe) 40 mg SUBCUT DAILY [facility] Last Admin: 03/01/21 09:39 Dose: 40 mg Documented by: Glucagon (Glucagon,Human Recombinant 1 Mg Vial) 1 mg IM ASDIRECTED PRN PRN Reason: Hypoglycemia Insulin Glargine (Insulin Glargine,Human Rec. Analog 100 Units/Ml 3 Ml Pen) 15 units SUBCUT BID [facility] Last Admin: 03/01/21 20:10 Dose: 15 unit Documented by: Insulin Human Lispro (Insulin Lispro 100 Unit/Ml 3 Ml Kwikpen) 0 unit SUBCUT QIDACANDBED [facility]; Protocol Last Admin: 03/01/21 20:09 Dose: 8 units Documented by: Lisinopril (Lisinopril 5 Mg Tab) 5 mg PO DAILY [facility] Last Admin: 03/01/21 09:42 Dose: 5 mg Documented by: Magnesium Hydroxide (Magnesium Hydroxide 400 Mg/5 Ml Susp 30 Ml Cup) 30 ml PO DAILY PRN PRN Reason: Constipation Last Admin: 02/28/21 21:08 Dose: 30 ml Documented by: Metformin HCl (Metformin 500 Mg Tab.Er) 1,000 mg PO BIDMEALS [facility] Last Admin: 03/01/21 17:53 Dose: 1,000 mg Documented by: Polyethylene Glycol (Polyethylene Glycol 3350 Powder 17 Gm Packet) 17 gm PO DAILY [facility] Last Admin: 03/01/21 09:39 Dose: 17 gm Documented by: Discontinued Medications Dextrose/Water (50% Dextrose In Water 50 Ml Syringe) 50 ml IVPUSH ASDIRECTED PRN PRN Reason: Hypoglycemia Dextrose/Water (50% Dextrose In Water 50 Ml Syringe) 50 ml IVPUSH ASDIRECTED PRN PRN Reason: Hypoglycemia Dextrose/Water (50% Dextrose In Water 50 Ml Syringe) 50 ml IVPUSH ASDIRECTED PRN PRN Reason: Hypoglycemia Enoxaparin Sodium (Enoxaparin 30 Mg/0.3 Ml Syringe) 30 mg SUBCUT BEDTIME [facility] Last Admin: 02/25/21 20:36 Dose: 30 mg Documented by: Enoxaparin Sodium (Enoxaparin 40 Mg/0.4 Ml Syringe) 40 mg SUBCUT Q12H [facility] Glucagon (Glucagon,Human Recombinant 1 Mg Vial) 1 mg IM ASDIRECTED PRN PRN Reason: Hypoglycemia Glucagon (Glucagon,Human Recombinant 1 Mg Vial) 1 mg IM ASDIRECTED PRN PRN Reason: Hypoglycemia Glucagon (Glucagon,Human Recombinant 1 Mg Vial) 1 mg IM ASDIRECTED PRN PRN Reason: Hypoglycemia Sodium Chloride (Normal Saline) 1,000 mls @ 150 mls/hr IV ASDIRECTED [facility] Last Infusion: 02/25/21 18:39 Dose: 125 mls/hr Documented by: Doxycycline Hyclate 100 mg/ (Sodium Chloride) 100 mls @ 100 mls/hr IV Q12H [facility] Last Admin: 02/27/21 05:47 Dose: 100 mls/hr Documented by: Sodium Chloride (Normal Saline) 1,000 mls @ 125 mls/hr IV ASDIRECTED [facility] Last Admin: 02/26/21 01:07 Dose: 125 mls/hr Documented by: Sodium Chloride (Normal Saline) 1,000 mls @ 75 mls/hr IV ASDIRECTED [facility] Last Admin: 02/27/21 14:42 Dose: 75 mls/hr Documented by: Levofloxacin/Dextrose 500 mg/ (Premix) 100 mls @ 100 mls/hr IV Q24H [facility] Last Admin: 02/27/21 09:43 Dose: Not Given Documented by: Insulin Human Regular (Insulin Regular, Human 100 Units/Ml 3 Ml Vial) 10 unit IV ONETIME ONE Stop: 02/25/21 15:34 Last Admin: 02/25/21 17:20 Dose: 10 unit Documented by: Insulin Lispro Protam/Lispro Human (Insulin Lispro Protamine/Lispro 75-25 100 Units/Ml 3 Ml Kwikpen) 0 unit SUBCUT QIDACANDBED [facility]; Protocol Last Admin: 02/25/21 18:39 Dose: Not Given Documented by: Nitrofurantoin Macrocrystals (Nitrofurantoin Monohydrate/Macrocrystalline 100 Mg Cap) 100 mg PO BID [facility] Last Admin: 02/28/21 09:11 Dose: 100 mg Documented by: Senna/Docusate Sodium (Docusate Sodium/Sennosides 50-8.6 Mg Tab) 1 tab PO ONETIME ONE Stop: 03/01/21 09:26 Last Admin: 03/01/21 09:45 Dose: 1 tab Documented by: - Exam Quality Assessment: Supplemental Oxygen General: Alert, Oriented - Patient Data Lab Results Last 24 hrs: Laboratory Results - last 24 hr 03/01/21 03/01/21 03/01/21 Range/Units 11:34 12:30 17:47 POC Glucose 357 H 301 H (74-100) mg/dL Urine Color Yellow (YELLOW) Urine Appearance Cloudy (CLEAR) Urine pH 5.0 (5.0-6.5) Ur Specific [place] 1.025 (1.010-1.025) Urine Protein 30 H (NEGATIVE) mg/dL Urine Glucose (UA) >1000 H (NORMAL) mg/dL Urine Ketones Negative (NEGATIVE) mg/dL Urine Occult Blood Large H (NEGATIVE) Urine Nitrite Negative (NEGATIVE) Urine Bilirubin Negative (NEGATIVE) Urine Urobilinogen Normal (NEGATIVE) mg/dL Ur Leukocyte Esterase Large H (NEGATIVE) Urine RBC 5-10 H (0-5) Urine WBC 75-100 H (0-5) Ur Squamous Epith Cells Occasional (NS,R,O) Urine Bacteria Few H (NS) 03/01/21 Range/Units 20:08 POC Glucose 329 H (74-100) mg/dL Urine Color (YELLOW) Urine Appearance (CLEAR) Urine pH (5.0-6.5) Ur Specific [place] (1.010-1.025) Urine Protein (NEGATIVE) mg/dL Urine Glucose (UA) (NORMAL) mg/dL Urine Ketones (NEGATIVE) mg/dL Urine Occult Blood (NEGATIVE) Urine Nitrite (NEGATIVE) Urine Bilirubin (NEGATIVE) Urine Urobilinogen (NEGATIVE) mg/dL Ur Leukocyte Esterase (NEGATIVE) Urine RBC (0-5) Urine WBC (0-5) Ur Squamous Epith Cells (NS,R,O) Urine Bacteria (NS) Result Diagrams: 02/28/21 06:15 02/28/21 06:15 Sepsis Event Note - Evaluation Sepsis Screening Result: No Definite Risk - Focused Exam Vital Signs: Vital Signs Temp Pulse Resp BP Pulse Ox 03/02/21 04:00 98 F 106 H 18 138/78 97 03/01/21 23:28 97.4 F 108 H 20 144/80 H 96 - Problem List & Annotations (1) Diabetes type 2, uncontrolled SNOMED Code(s): 127612711, 355258190 Code(s): E11.65 - TYPE 2 DIABETES MELLITUS WITH HYPERGLYCEMIA Status: Acute Current Visit: Yes Qualifiers: Glycemic state: with hyperglycemia Qualified Code(s): E11.65 - Type 2 diabetes mellitus with hyperglycemia (2) Acute kidney injury SNOMED Code(s): 35660047, 98216283 Code(s): N17.9 - ACUTE KIDNEY FAILURE, UNSPECIFIED Status: Acute Current Visit: Yes (3) Constipation SNOMED Code(s): 96721891 Code(s): K59.00 - CONSTIPATION, UNSPECIFIED Status: Acute Current Visit: No Qualifiers: Constipation type: slow transit constipation Qualified Code(s): K59.01 - Slow transit constipation (4) UTI (urinary tract infection) SNOMED Code(s): 48697919 Code(s): N39.0 - URINARY TRACT INFECTION, SITE NOT SPECIFIED Status: Acute Current Visit: No Qualifiers: Urinary tract infection type: acute cystitis Hematuria presence: without hematuria Qualified Code(s): N30.00 - Acute cystitis without hematuria (5) Chronic retention of urine SNOMED Code(s): 469043605 Code(s): R33.9 - RETENTION OF URINE, UNSPECIFIED Status: Acute Current Visit: Yes (6) Frail elderly SNOMED Code(s): 979066706 Code(s): R54 - AGE-RELATED PHYSICAL DEBILITY Status: Acute Current Visit: Yes - Problem List Review Problem List Initiated/Reviewed/Updated: Yes - My Orders Last 24 Hours: My Active Orders 03/01/21 09:00 Communication Order [RC] DAILY 03/01/21 12:30 CULTURE URINE [RM] Routine - Assessment Assessment:: Acute kidney injury has grossly resolved. Reduce IV fluids from 125 mL/h to 75 mL/h. The patient is taking p.o. well and voiding well. Continue IV antibiotics for 1 more day and switch to oral doxycycline tomorrow. Glucose was 174 this morning. Continue sliding scale insulin and change to home insulin routine tomorrow. Patient had some reduced airflow in the left lower lobe and crackles bilaterally, chest x-ray today, further recommendations to follow. Increase DVT prophylaxis to 40 mg subcu QD starting today. Continue diet as directed, continue ambulation with assistance. - Plan Plan:: Patient and family would like to see Urology and Endocrinology. They feel a transfer to [facility] reasonable. We willattempt that, Failutre to [facility] I will recommend DC home with Home health.For now,ask PT/OT consult
[2021-03-02] MEDS: Insulin Lispro 100 Unit/ML 3 ML KwikPen SUBCUT SCH ×4 (09:16→20:43)
[2021-03-02] MEDS: Doxycycline 100 MG Tab PO SCH ×2 (09:17→20:45)
[2021-03-02] MEDS: Lisinopril 5 MG Tab PO SCH (09:17)
[2021-03-02] MEDS: metFORMIN 500 MG Tab.ER PO SCH ×2 (09:18→17:51)
[2021-03-02] MEDS: Enoxaparin 40 MG/0.4 ML Syringe SUBCUT SCH (09:18)
[2021-03-02] MEDS: Cholecalciferol (Vitamin D3) 25 MCG Tab PO SCH ×2 (09:18→20:45)
[2021-03-02] MEDS: Polyethylene Glycol 3350 Powder 17 GM Packet PO SCH ×2 (09:18→10:00)
[2021-03-02] MEDS: Acetaminophen 325 MG Tab PO PRN (09:19)
[2021-03-02] MEDS: Insulin Glargine,Human Rec. Analog 100 Units/ML 3 ML Pen SUBCUT SCH ×2 (09:25→20:44)
[2021-03-02] MEDS: Cetirizine 10 MG Tab PO SCH (20:45)
[2021-03-02] MEDS: Nystatin Crm 30 GM Tube TOP SCH (20:52)
[2021-03-03] MEDS: Acetaminophen 325 MG Tab PO PRN (01:45)
[2021-03-03] MEDS: Insulin Lispro 100 Unit/ML 3 ML KwikPen SUBCUT SCH ×2 (09:36→12:50)
[2021-03-03] MEDS: metFORMIN 500 MG Tab.ER PO SCH (09:37)
[2021-03-03] MEDS: Enoxaparin 40 MG/0.4 ML Syringe SUBCUT SCH ×2 (09:37→10:29)
[2021-03-03] MEDS: Nystatin Crm 30 GM Tube TOP SCH (09:38)
[2021-03-03] MEDS: Lisinopril 5 MG Tab PO SCH (09:38)
[2021-03-03] MEDS: Cholecalciferol (Vitamin D3) 25 MCG Tab PO SCH (09:39)
[2021-03-03] MEDS: Doxycycline 100 MG Tab PO SCH (09:39)
[2021-03-03] MEDS: Polyethylene Glycol 3350 Powder 17 GM Packet PO SCH (09:42)
[2021-03-03] MEDS: Insulin Glargine,Human Rec. Analog 100 Units/ML 3 ML Pen SUBCUT SCH (09:43)
[2021-03-03 10:34] VITALS: BP 124/66; PULSE 96
--- NOTE | 2021-03-03 13:10 | DISCH ---
DISCHARGE DATE: 03/03/2021 REASON FOR ADMISSION: 1. Type 2 diabetes, hyperglycemia. 2. Urinary tract infection. DISCHARGE DIAGNOSES: 1. Urinary retention, chronic. 2. Uncontrolled type 2 diabetes. 3. Generalized debility and weakness. 4. Ulcer of the left ankle, nonhealing. 5. Acute kidney injury, resolved. BRIEF HISTORY: An 85-year-old female admitted directly from the clinic because of elevated blood sugars. She was also found to have bacteriuria and UTI, initially treated with IV doxycycline based on urine cultures from the clinic. It was discovered in the hospital that she had chronic retention of urine, needing to use the bathroom several times, and needing intermittent catheterization. A renal ultrasound which was done on the showed urinary retention and possibly obstructive disease. She got fluids, was treated for insulin sliding scale and Lantus. Her sugars did start to stabilize. A1c in the clinic was 11.9. After much discussion with the family and after physical therapy evaluation, she was determined to need home health services and referral was made to [facility], and appointment is for Sunday the . I discharged her home on doxycycline. She will also start Lantus 30 units at bedtime and 5 units with every meal. She would stop the 70/30 that she was using. I spent more than 45 minutes in the discharge of the patient. /[id number] CONSUELO/EVAN
--- NOTE | 2021-03-05 16:03 | PCM.SN.2 ---
- Free Text/Narrative Note: [facility] nurse called pt's family had called [facility] forBS [phone] now, had been 287 this AM last A1C over 10 2w ago per [facility] pt d/c'ed here 3d ago with dx DM with hyperglycemia, d/c'ed by Dr Whitney saw PCP Dr Dejesus yesterday (Sun), he stopped all insulin (previously on Lantus 30u/hs and Novolog 5u ac & hs) and changed to Novolon 20u BID family requesting more insulin UC with yeast, last CBC neg, no evidence of infection will increase to Novolin 30u AM and 25u PM, may give 10u now f/u 2-3d with Dr Dejesus continue to monitor BS and call if additional questions
== END 2021-03-03 13:55 | disposition home or self-care (01) | DRG 638 ==
LOC: FB.MS 15:58
PROVIDERS: ADMIT Student in an Organized Health Care Education/Training Program; ATTEND Family Medicine
DX: E11.65 Type 2 diabetes mellitus with hyperglycemia (principal); N30.00 Acute cystitis without hematuria; N17.9 Acute kidney failure, unspecified; E87.2 Acidosis; L97.329 Non-pressure chronic ulcer of left ankle with unspecified severity; H91.90 Unspecified hearing loss, unspecified ear; E78.00 Pure hypercholesterolemia, unspecified; I10 Essential (primary) hypertension; K21.9 Gastro-esophageal reflux disease without esophagitis; K59.01 Slow transit constipation; Z51.5 Encounter for palliative care; R54 Age-related physical debility; B96.89 Other specified bacterial agents as the cause of diseases classified elsewhere; E11.622 Type 2 diabetes mellitus with other skin ulcer; Z90.49 Acquired absence of other specified parts of digestive tract; Z88.0 Allergy status to penicillin; Z88.6 Allergy status to analgesic agent; Z79.4 Long term (current) use of insulin; Z98.49 Cataract extraction status, unspecified eye; Z79.899 Other long term (current) drug therapy; Z90.710 Acquired absence of both cervix and uterus; Z86.73 Personal history of transient ischemic attack (TIA), and cerebral infarction without residual deficits
CPT/HCPCS: 36415; 51701; 51702; 51798; 71046; 76770; 80048; 81001; 82947; 82962; 85025; 87086; 87088; 97161-GP; 97166-GO; 97530-GO; 97535-GO; A9270-GY; J1650; J1815; J1815-GY; J3490; J7030